=== PATIENT | male | born 1940 | race Caucasian/White ===

== ENCOUNTER 2019-07-25 11:25 | Outpatient (CLI) | payer MEDICARE, OTHER, SELFPAY ==
[2019-07-25 12:25] LABS: C Reactive Protein 0.3 mg/L (0.0-4.9); Creatine Phosphokinase 143 U/L (39-308)
[2019-07-25 12:59] LABS: Erythrocyte Sedimentation Rate 22 mm/hr (0-10)
[2019-07-26 15:12] LABS: Aldolase 3.5 U/L (< OR = 8.1); Anti-Nuclear Antibody Screen NEGATIVE (NEGATIVE); Cyclic Citrullinated Peptide <16 UNITS; SS A Ro Sjogrens Antibody <1.0 NEG AI (<1.0 NEG); SS-B/LA IGG <1.0 NEG AI (<1.0 NEG)
== END 2019-07-25 11:26 | disposition home or self-care (01) ==
PROVIDERS: Family Provider Family Medicine; PCP Family Medicine; Visit Provider Internal Medicine Critical Care Medicine
DX: J84.10 Pulmonary fibrosis, unspecified (principal)
CPT/HCPCS: 82085; 82550; 85651; 86038; 86140; 86235; 86431

== ENCOUNTER 2019-07-28 22:20 | Inpatient (IN) | payer MEDICARE, OTHER, SELFPAY ==
[2019-07-28 22:30] VITALS: BP 197/95; PULSE 64; RESP 16; TEMP 36.4; O2SAT 99; BMI 25.0
--- NOTE | 2019-07-28 22:38 | ED_ITS ---
Entered by Malgorzata Byrnes, acting as scribe for Lesli Turcios Beverley Jul 28, 2019 22:20 HPI - Chest Pain General: Chief Complaint: Chest Pain Stated Complaint: cp Time Seen by Provider: 07/28/19 22:36 Source: patient Mode of arrival: ambulatory Limitations: no limitations History of Present Illness: HPI narrative: 78 yo m came to the er for chest pain. Onset was tonight. Pt states that he was walking when he began to have dull chest pain. Pt states that the pain lasted a couple of hours. Pt states that that pain an hour before he came to the er was sharp. Pt is denying nausea and voiting at this time. MD complaint: chest pain Onset (ago): hour(s) Timing of current episode: episodic Prior episodes: Yes Onset: during rest and during exertion Pain location: epigastric Pain radiation: none Severity: mild Quality: sharp and dull Relieving factors: nothing Exacerbating factors: nothing Associated symptoms: Deny abdominal pain, diaphoresis, dyspnea, fever(s), nausea, palpitations, syncope or vomiting Risk Factors: Coronary artery disease risk factors: none Thoracic aortic dissection risk factors: none Review of Systems General: Reports: other (negative unless marked) Const: Denies: fever, chills, body aches, fatigue, malaise or diaphoresis Eyes: Denies: change in vision or blurry vision ENMT: Denies: throat pain, painful swallowing, hoarseness, ear pain, ear discharge, Change in hearing or nasal discharge Card: Reports: chest pain; Denies: palpitations, irregular heart rhythm, syncope, pre-syncope, shortness of breath on exertion or shortness of breath when lying down Resp: Denies: shortness of breath, productive cough, non-productive cough, wheezing, coughing up blood or chest congestion GI: Denies: abdominal pain, nausea, vomiting, vomiting blood, coffee grounds in vomit, diarrhea, constipation, cramping, blood in stool or black tarry stool : Denies: flank pain, difficulty urinating, painful urination, urinary frequency, urinary urgency, decreased urine ouput, urinary incontinence or blood in urine Musc: Denies: neck pain, back pain, extremity pain, extremity swelling, joint pain, joint swelling, joint warmth or joint stiffness Skin/Breast: Denies: rash, skin tenderness or yellow skin Neuro: Denies: headache, numbness in extremities, weakness in extremities, changes in sensation, lack of coordination, difficulty walking, dizziness, vertigo or confusion Endo: Denies: excessive thirst, tired all the time, cold intolerance, excessive sweating, flushing or hot flashes Renny/Lymph: Denies: easy bruising, easy bleeding, petechiae or enlarged lymph nodes All/Imm: Denies: hives, throat swelling, tongue swelling, facial swelling or acute wheezing PFSH ED PFSH: Statuses (acute, chronic, etc) shown below reflect problem list status as previously entered and may not be historically accurate Medical History Autonomic postural hypotension (Acute) Chronic prostatitis (Acute) Cough (Acute) Essential (primary) hypertension (Acute) H/O nephrolithotomy with removal of calculi (Acute) Hematuria (Acute) Male erectile dysfunction, unspecified (Acute) Mediastinal lymphadenopathy (Acute) Palpitations (Acute) Pure hypercholesterolemia, unspecified (Acute) Surgical History H/O oral surgery (Acute) History of ankle surgery (Acute) History of cholecystectomy (Acute) Family History Mother CAD (coronary artery disease) Lung disease CHF (congestive heart failure) Father CAD (coronary artery disease) Myocardial infarction Brother CAD (coronary artery disease) Hypertension Sister Hypertension Social History Smoking and tobacco status: former smoker Quit status (tobacco): has quit using tobacco Year quit tobacco: 1967 - 1PPD x 10 Years Alcohol intake: never Household members: spouse Marital status: Current occupational status: retired History of recent travel: No Current gender identity: Male Physical Exam Const: COMMON NORMALS: no apparent distress, oriented x3, no limitations, healthy appearing and well nourished EXAM LIMITATIONS: no altered mental status GENERAL APPEARANCE: cooperative, well kempt and well developed ORIENTATION/CONSCIOUSNESS: Yes awake HENMT: COMMON NORMALS: normocephalic, head/scalp atraumatic, hearing grossly normal bilaterally, external ears normal, EAC's normal, external nose normal and moist oral mucous membranes HEAD & SCALP: normal to inspection, normocephalic and atraumatic FACE & SINUS: normal facial exam and face symmetric NOSE: external nose normal and nares normal EXTERNAL EAR: Yes external ears normal EXTERNAL AUDITORY CANAL: EAC's normal MOUTH: oral and palatal mucosa normal and tongue normal Eye: COMMON NORMALS: PERRL, EOMs intact bilaterally, conjunctivae normal and no scleral icterus GENERAL EYE: normal appearance of both eyes and normal light reflex CONJUNCTIVA: Yes conjunctivae normal SCLERA: sclerae normal CORNEA: Yes corneas normal PUPIL: Yes PERRL DIRECT OPHTHALMOSCOPY: Yes normal light reflex Neck/C-Spine: COMMON NORMALS: full ROM, no lymphadenopathy, supple, no meningeal signs and no JVD GENERAL: Yes normal visual inspection and Yes trachea midline CERVICAL SPINE: Yes cervical ROM normal Chest: COMMONS NORMALS: inspection of chest normal and palpation of chest normal Resp: COMMON NORMALS: normal respiratory effort, no retractions, no use of accessory muscles and clear to auscultation bilaterally EFFORT & INSPECTION: Yes able to speak in complete sentences AUSCULTATION: clear to auscultation bilaterally Cardio: COMMON NORMALS: no JVD, regular rate, regular rhythm, S1 normal heart sound, S2 normal heart sound, no gallops, no clicks, no murmurs and no rub JUGULAR VENOUS DISTENTION: no JVD RATE: regular rate RHYTHM: regular rhythm HEART SOUNDS: S1 normal and S2 normal GI: COMMON NORMALS: soft to palpation, non-tender, no hepatosplenomegaly and no masses INSPECTION: Yes normal to inspection PALPATION: Yes soft and Yes no hepatosplenomegaly : COMMON NORMALS: Yes no CVA tenderness BLADDER/KIDNEY EXAM: Yes no CVA tenderness Back/Pelvis: COMMON NORMALS: no CVA tenderness, thoracic and lumbar spine normal to inspection, no thoracic nor lumbar tenderness and thoraco-lumbar ROM normal Extremity: COMMON NORMALS: normal to inspection, full ROM, normal capillary refill, no joint enlargement, no clubbing, cyanosis or edema and no calf tenderness Neuro: COMMON NORMALS: oriented x3, CN's II-XII intact bilaterally, moves all extremities, no focal motor deficits and no sensory deficits noted MENINGEAL SIGNS: Yes no meningeal signs Psych: COMMON NORMALS: mental status grossly normal, thought process normal, cooperative, affect normal, speech normal and activity/motor behavior normal APPEARANCE: Yes well kempt SPEECH: Yes normal speech THOUGHT PROCESS: normal thought process Skin: COMMON NORMALS: no rashes or lesions noted, skin turgor normal, no jaundice, no petechiae and no mottling GENERAL SKIN EXAM: no rashes or lesions noted and turgor normal Course Vital Signs: Vital signs: Vital Signs Temperature 97.7 F 07/29/19 00:30 Pulse Rate 59 L 07/29/19 00:30 Respiratory Rate 13 07/29/19 00:30 Blood Pressure 139/64 07/29/19 00:30 Pulse Oximetry 96 07/29/19 00:30 MDM - Chest Pain MDM Narrative: Medical decision making narrative: 0017 - Patient is chest pain-free after 1 sublingual nitroglycerin. 1 inch paste was applied. He was given aspirin. His elevated troponin qualifies him for a NSTEMI. He understands the significance of this and agrees to stay. Patient is currently chest pain-free. The case was reviewed with Dr. Helton, he agrees to consult f or further evaluation. Lab Data: Labs: Lab Results 07/28/19 07/28/19 07/28/19 Range/Units 22:51 22:51 22:51 WBC 8.0 (4.0-10.0) 10^3/ uL RBC 4.17 (4.1-5.3) 10^6/u L Hgb 12.6 (11.7-16.6) g/dL Hct 38.3 L (42.0-52.0) % MCV 91.8 (80-94) fL MCH 30.2 (28.0-34.0) pg MCHC 32.9 (30.0-36.0) g/dL RDW 12.3 (12.1-15.1) % Plt Count 227 (130-400) 10^3/c mm MPV 9.9 (7.4-10.4) fL Neut % (Auto) 62.1 % Lymph % (Auto) 22.0 % [place] % (Auto) 10.4 % Eos % (Auto) 4.1 % Baso % (Auto) 1.1 % Neut # (Auto) 5.0 (1.8-7.7) 10^3/u L Lymph # (Auto) 1.8 (0.8-4.8) 10^3/u L [place] # (Auto) 0.8 (0.2-0.9) 10^3/u L Eos # (Auto) 0.3 (0.0-0.8) 10^3/u L Baso # (Auto) 0.1 (0.0-0.1) 10^3/u L Nucleated RBC % (a uto) 0 % Nucleated RBCs # 0.0 /100WBC PT 13.80 H (10.5-13.3) SECO NDS INR 1.03 (0.8-1.2) Sodium 137 (136-145) mmol/L Potassium 3.9 (3.5-5.1) mmol/L Chloride 98 (98-107) mmol/L Carbon Dioxide 25 (22-29) mmol/L Anion Gap 17.9 (5-19) BUN 16 (8-23) mg/dL Creatinine 0.9 (0.7-1.2) mg/dL Glucose 124 H (74-106) mg/dL Calcium 10.2 (8.8-10.2) mg/Dl Total Bilirubin 0.3 (0.15-1.2) mg/dL AST 32 (0-40) U/L ALT 16 (0-41) U/L Alkaline Phosphata se 70 (40-130) IU/L Troponin T Baselin e (0-15) ng/mL NT-Pro-B Natriuret Pep 352 (0-450) pg/mL Total Protein 7.4 (6.6-8.7) g/dL Albumin 4.9 (3.5-5.2) g/dL Globulin 2.5 (1.3-4.6) g/dL 07/28/19 Range/Units 22:51 WBC (4.0-10.0) 10^3/ uL RBC (4.1-5.3) 10^6/u L Hgb (11.7-16.6) g/dL Hct (42.0-52.0) % MCV (80-94) fL MCH (28.0-34.0) pg MCHC (30.0-36.0) g/dL RDW (12.1-15.1) % Plt Count (130-400) 10^3/c mm MPV (7.4-10.4) fL Neut % (Auto) % Lymph % (Auto) % [place] % (Auto) % Eos % (Auto) % Baso % (Auto) % Neut # (Auto) (1.8-7.7) 10^3/u L Lymph # (Auto) (0.8-4.8) 10^3/u L [place] # (Auto) (0.2-0.9) 10^3/u L Eos # (Auto) (0.0-0.8) 10^3/u L Baso # (Auto) (0.0-0.1) 10^3/u L Nucleated RBC % (a uto) % Nucleated RBCs # /100WBC PT (10.5-13.3) SECO NDS INR (0.8-1.2) Sodium (136-145) mmol/L Potassium (3.5-5.1) mmol/L Chloride (98-107) mmol/L Carbon Dioxide (22-29) mmol/L Anion Gap (5-19) BUN (8-23) mg/dL Creatinine (0.7-1.2) mg/dL Glucose (74-106) mg/dL Calcium (8.8-10.2) mg/Dl Total Bilirubin (0.15-1.2) mg/dL AST (0-40) U/L ALT (0-41) U/L Alkaline Phosphata se (40-130) IU/L Troponin T Baselin e 110 H* (0-15) ng/mL NT-Pro-B Natriuret Pep (0-450) pg/mL Total Protein (6.6-8.7) g/dL Albumin (3.5-5.2) g/dL Globulin (1.3-4.6) g/dL Imaging Data^: CXR: Radiologist's impression: [address] [address] XRay Report Signed Patient: Yandel Hernandez #: [id number] : 2Acct#:[id number] Age/Sex: 78 / MADM Date: 07/28/19 Loc: ERRoom/Bed: Attending Dr: Ordering Provider/Ordering MD: Lesli Turcios DO Date of Service: 07/28/19 Procedure(s): XR chest 1V portable [id number] Accession Number(s): [id number] Report Number: [id number] PROCEDURE INFORMATION: Exam: XR Chest, 1 View Exam date and time: 07/28/2019 10:44 PM Age: 78 years old Clinical indication: Shortness of breath; Additional info: Chest pain TECHNIQUE: Imaging protocol: XR of the chest Views: 1 view. COMPARISON: CR Chest 1 [place] [id number] 12/19/2018 6:47 PM FINDINGS: Lungs: Emphysematous changes and mild peripheral fibrosis are not significantly changed from 12/19/2018. No focal infiltrate is identified. Pleural space: Unremarkable. No pleural effusion. No pneumothorax. Heart/Mediastinum: Heart is within normal limits of size. Bones/joints: Unremarkable. XR/XR chest 1V portable [id number] IMPRESSION: COPD. No acute infiltrates. Dictated By:Antoni Bingham Signed By:Jerson Binghamigned Date/Time:07/28/192337 DD/ 35 EKG Data^: EKG 1: Attestation: I personally reviewed and interpreted this EKG as follows: (Normal sinus rhythm at 61 beats a minute, nonspecific ST-T wave changes.) Discharge Plan Discharge Patient Disposition: Admitted As Inpatient Admit Provider: Tori Helton Clinical Impression: Non-ST elevation (NSTEMI) myocardial infarction Condition: Stable Interventions: ED Discharge Assessment Last Done: 07/29/19 00:28 Discharge Date/Time: 07/29/19 00:32 Coding Level of Care Code ED Celluloid Trimmer for Chg Fwd Exam Problem Focused The documentation recorded by the Fitz dhillon Stephanie Lyn, accurately reflects the service I personally performed and the decisions made by Tam fleming Eli N Jul 28, 2019 22:20
--- NOTE | 2019-07-28 22:43 | ECG_ITS ---
Measurements Intervals [place] Rate: 61 P: 53 WV: 165 QRS: -50 QRSD: 104 T: 61 QT: 432 QTc: 438 SINUS RHYTHM LEFT AXIS DEVIATION [QRS AXIS < -30] MODERATE ST DEPRESSION [0.05+ mV ST DEPRESSION] INTERPRETATION BASED ON A DEFAULT AGE OF 40 YEARS Compared to ECG 12/19/2018 22:24:36 ST (T wave) deviation now present Ventricular premature complex(es) no longer present T-wave abnormality no longer present Electronically Signed On 07-29-2019 9:33:00 [employer] by Jin Singer M.D. [email or web address]
--- NOTE | 2019-07-28 22:43 | XRR_ITS ---
PROCEDURE INFORMATION: Exam: XR Chest, 1 View Exam date and time: 07/28/2019 10:44 PM Age: 78 years old Clinical indication: Shortness of breath; Additional info: Chest pain TECHNIQUE: Imaging protocol: XR of the chest Views: 1 view. COMPARISON: CR Chest 1 [place] [id number] 12/19/2018 6:47 PM FINDINGS: Lungs: Emphysematous changes and mild peripheral fibrosis are not significantly changed from 12/19/2018. No focal infiltrate is identified. Pleural space: Unremarkable. No pleural effusion. No pneumothorax. Heart/Mediastinum: Heart is within normal limits of size. Bones/joints: Unremarkable. XR/XR chest 1V portable [id number] IMPRESSION: COPD. No acute infiltrates.
[2019-07-28 22:44] VITALS: BP 164/93; PULSE 12; RESP 18; O2SAT 100
[2019-07-28 23:01] LABS: Basophils # 0.1 10^3/uL (0.0-0.1); Basophils % 1.1 %; Eosinophils # 0.3 10^3/uL (0.0-0.8); Eosinophils % 4.1 %; Hematocrit 38.3 % (42.0-52.0); Hemoglobin 12.6 g/dL (11.7-16.6); Lymphocytes # 1.8 10^3/uL (0.8-4.8); Mean Corpuscular HGB Conc 32.9 g/dL (30.0-36.0); Mean Corpuscular Hemoglobin 30.2 pg (28.0-34.0); Mean Corpuscular Volume 91.8 fL (80-94); Mean Platelet Volume 9.9 fL (7.4-10.4); Monocytes # 0.8 10^3/uL (0.2-0.9); Monocytes % 10.4 %; Neutrophils % 62.1 %; Nucleated Red Blood Cells % 0 %; Platelet Count 227 10^3/cmm (130-400); Red Blood Count 4.17 10^6/uL (4.1-5.3); Red Cell Distribution Width 12.3 % (12.1-15.1)
[2019-07-28 23:14] VITALS: BP 164/91; PULSE 71; RESP 16; O2SAT 99
[2019-07-28 23:14] LABS: INR 1.03 (0.8-1.2)
[2019-07-28 23:20] LABS: Troponin(5th) Baseline 110 ng/mL (0-15)
[2019-07-28 23:28] LABS: Alanine Aminotransferase 16 U/L (0-41); Albumin Level 4.9 g/dL (3.5-5.2); Alkaline Phosphatase 70 IU/L (40-130); Anion Gap 17.9 (5-19); Aspartate Amino Transferase 32 U/L (0-40); Blood Urea Nitrogen 16 mg/dL (8-23); Calcium 10.2 mg/Dl (8.8-10.2); Carbon Dioxide 25 mmol/L (22-29); Chloride 98 mmol/L (98-107); Globulin 2.5 g/dL (1.3-4.6); Glucose 124 mg/dL (74-106); NT Pro B Type Natriuretic Pept 352 pg/mL (0-450); Potassium 3.9 mmol/L (3.5-5.1); Sodium 137 mmol/L (136-145); Total Bilirubin 0.3 mg/dL (0.15-1.2); Total Protein 7.4 g/dL (6.6-8.7)
[2019-07-28] MEDS: ondansetron 2 mg/ML SDV 2 mL 4 MG IVP (23:32)
[2019-07-28] MEDS: sodium chloride 0.9% 500 ML 999 ML IV (23:33)
[2019-07-28] MEDS: nitroglycerin 0.4 mg sublingual Tablet SUBLINGUAL (23:33)
[2019-07-28] MEDS: aspirin 81 mg Chew Tablet 324 MG PO (23:33)
[2019-07-29] VITALS (31 sets, daily range): BP systolic 122–146; BP diastolic 62–78; PULSE 47–61; RESP 0–20; TEMP 36–36.6; O2SAT 93–100
[2019-07-29] MEDS: nitroglycerin 1 gm/inch oint Pkt 1 INCH TOPICAL (00:56)
[2019-07-29] MEDS: sodium chloride 0.9% 1,000 ML 100 ML IV ×2 (00:57→23:45)
--- NOTE | 2019-07-29 00:59 | PC.NURSE ---
Introduced self to patient and initiated vital signs. Pt is A&O x 4 and agreeable. Pt states that the reason for the ER visit today is due to chest pain that he experienced this evening while in bed. Pt also speaks of chest pain episode which occurred approximately 1x day ago. Reassured patient of needs and will continue to monitor. Awaiting provider at bedside.
--- NOTE | 2019-07-29 02:10 | ECG_ITS ---
Measurements Intervals [place] Rate: 56 P: 49 [place]: 177 QRS: -50 QRSD: 90 T: 43 QT: 458 QTc: 444 SINUS BRADYCARDIA MARKED LEFT AXIS DEVIATION [QRS AXIS < -30] LOW QRS VOLTAGE IN PRECORDIAL LEADS [QRS DEFLECTION < 1.0 mV IN CHEST LEADS] Compared to ECG 12/19/2018 22:24:36 Sinus rhythm no longer present Ventricular premature complex(es) no longer present T-wave abnormality no longer present Electronically Signed On 07-29-2019 9:36:45 [employer] by Jin Singer M.D. [email or web address]
--- NOTE | 2019-07-29 04:27 | PM.HP ---
Providers/Chief Complaint Admitting Physician: Tori Helton MD Primary Care Provider: Mervin Blakely Chief Complaint: cp History of Present Illness Yandel Hernandez is a 78 year old male with PMHx of Interstitial pulmonary fibrosis, COPD, HTN, Hyperlipidemia; presents from home for evaluation of chest pain. He describes having had 2 episodes of this 1 yesterday and 1 today. It initially began while he was walking with his and had to stop to catch his breath. He tried laying down on the floor as this seems to be more comfortable for his back but could not seem to get rid of the pain. He had a bout of weakness and blurry vision, give him a drink of water which seemed to help him feel better. He does not recall having any increased shortness of breath, diaphoresis, lightheadedness. Prior to yesterday he had not had this symptoms. He was recently seen by Dr. Rodríguez for evaluation of mediastinal lymphadenopathy and states that he is scheduled to have a CT scan of the chest and a PET scan. He is not oxygen dependent at baseline. He was quite hypertensive on his arrival to the ER but blood pressure seems to be stable now. He is currently on room air. Chest pain seems to have subsided. Work-up is unremarkable save for noted delta change in his 2-hour gen 5 troponins. He received full dose aspirin as well as nitroglycerin. I will start him on full dose anticoagulation and statin. Will order echo for a.m. as no baseline currently available and will risk stratify with additional labs. Review of Systems Const: Reports: fatigue; Denies: fever, chills or change in appetite Eyes: Denies: change in vision ENMT: Denies: painful swallowing or dry mouth Card: Reports: chest pain and shortness of breath on exertion; Denies: palpitations, edema, swelling of feet/ankles, lightheadedness, syncope or pre-syncope Resp: Denies: shortness of breath, productive cough or non-productive cough GI: Denies: abdominal pain, nausea, vomiting, vomiting blood or blood in stool : Denies: painful urination or urinary frequency Musc: Denies: back pain Skin/Breast: Denies: rash Neuro: Denies: numbness in extremities or weakness in extremities Psych: Denies: anxiety Medications/Allergies Allergies Allergy/AdvReac Type Severity Reaction Status Date / Time clarithromycin Allergy Unknown Verified 07/25/19 10:15 PFSH Acute PFSH: Statuses (acute, chronic, etc) shown below reflect problem list status as previously entered and may not be historically accurate Medical History (Updated 07/29/19 @ 04:03 by Lesli Turcios) Autonomic postural hypotension (Acute) Chronic prostatitis (Acute) Cough (Acute) Essential (primary) hypertension (Acute) H/O nephrolithotomy with removal of calculi (Acute) Hematuria (Acute) Male erectile dysfunction, unspecified (Acute) Mediastinal lymphadenopathy (Acute) Palpitations (Acute) Pure hypercholesterolemia, unspecified (Acute) Surgical History H/O oral surgery (Acute) History of ankle surgery (Acute) History of cholecystectomy (Acute) Family History Mother CAD (coronary artery disease) Lung disease CHF (congestive heart failure) Father CAD (coronary artery disease) Myocardial infarction Brother CAD (coronary artery disease) Hypertension Sister Hypertension Social History Smoking and tobacco status: former smoker Quit status (tobacco): has quit using tobacco Year quit tobacco: 1968 - 1PPD x 10 Years Alcohol intake: never Household members: spouse Marital status: Current occupational status: retired History of recent travel: No Current gender identity: Male Vitals/I&O/Wt Last Vital Signs Temp 97.7 F 07/29/19 00:30 Pulse 59 L 07/29/19 00:30 Resp 13 07/29/19 00:30 BP 139/64 07/29/19 00:30 Pulse Ox 96 07/29/19 00:30 Weight last 48 hrs Weight 84.64 kg Weight 83.915 kg Physical Exam Const: COMMON NORMALS: no apparent distress and oriented x3 GENERAL APPEARANCE: cooperative and comfortable ORIENTATION/CONSCIOUSNESS: Yes awake HENMT: COMMON NORMALS: normocephalic, head/scalp atraumatic, hearing grossly normal bilaterally and moist oral mucous membranes HEAD & SCALP: normocephalic and atraumatic Eye: COMMON NORMALS: PERRL, EOMs intact bilaterally and conjunctivae normal CONJUNCTIVA: Yes conjunctivae normal PUPIL: Yes PERRL Neck/C-Spine: COMMON NORMALS: full ROM GENERAL: Yes normal visual inspection and Yes trachea midline Resp: COMMON NORMALS: normal respiratory effort, no retractions, no use of accessory muscles and clear to auscultation bilaterally EFFORT & INSPECTION: Yes able to speak in complete sentences, Yes symmetric chest movement and No tachypneic AUSCULTATION: clear to auscultation bilaterally Cardio: COMMON NORMALS: regular rate, regular rhythm, S1 normal heart sound, S2 normal heart sound and no murmurs RATE: regular rate RHYTHM: regular rhythm HEART SOUNDS: S1 normal and S2 normal GI: COMMON NORMALS: normal to inspection, nondistended, normoactive bowel sounds, soft to palpation and non-tender PALPATION: Yes soft Extremity: COMMON NORMALS: normal to inspection, full ROM and no clubbing, cyanosis or edema; negative for no pedal edema Neuro: COMMON NORMALS: oriented x3, moves all extremities, no focal motor deficits and no sensory deficits noted Psych: COMMON NORMALS: mental status grossly normal, thought process normal, cooperative, affect normal and speech normal SPEECH: Yes normal speech THOUGHT PROCESS: normal thought process Skin: COMMON NORMALS: no rashes or lesions noted, no jaundice, no petechiae and no mottling GENERAL SKIN EXAM: no rashes or lesions noted Data : 07/28/19 22:51 07/28/19 22:51 A&P Assessment and plan (1) Non-ST elevation (NSTEMI) myocardial infarction: -Noted significant delta change in our gen 5 troponins -Telemetry monitoring -JULIANNA -monitor vital signs -will start on therapeutic Lovenox, statin. Has already received full dose ASA -Echo ordered, no baseline available -will need to discuss further with cardiology in AM -risk stratify with TSH, A1c, lipid panel -would hold off on BB due to bradycardia Status: Acute Code(s): I21.4 - Non-ST elevation (NSTEMI) myocardial infarction (2) Interstitial pulmonary fibrosis: -has been following up with Dr. Rodríguez -supplemental oxygen as needed, monitoring of respiratory status Status: Acute Code(s): J84.10 - Pulmonary fibrosis, unspecified Additional A&P Information -HTN -COPD, no acute exacerbation -Hyperlipidemia -GI ppx with famotidine -no need for DVT ppx as on therapeutic anticoagulation -Dispo: home -Code status: FULL code Attestations Medical Necessity Statement*: Yandel Hernandez's hospital stay will be less than 2 midnights for management of NSTEMI requiring further workup, cardiology evaluation. Time Spent in Patient Care: Greater than 35 minutes (>than 50% of time spent in counselling and/or direct pt care on unit). Coding Level of Care Code Acute Assembling Fabricator for Melonyg Fwd Diagnoses Non-ST elevation (NSTEMI) myocardial infarction I21.4 Interstitial pulmonary fibrosis J84.10
--- NOTE | 2019-07-29 04:28 | USCV_ITS ---
BryYandel hernandez Age: 78 Gender: M : 1940 Exam Date: 07/29/2019 08:27 Ordering Phys: Tori Helton MD Technologist: Birdie Sue Exam Location: [facility] – [place] Indication: NSTEMI BP: 122 / 71 HR: 55 Rhythm: Sinus bradycardia Technical Quality: Technically difficult study MEASUREMENTS (Male / Female) Normal Values 2D ECHO LV Diastolic Diameter PLAX 3.6 cm 4.2 - 5.9 / 3.9 - 5.3 cm LV Systolic Diameter PLAX 2.5 cm LV Chamber Size 3.7 cm IVS Diastolic Thickness 1.3 cm 0.6 - 1.0 / 0.6 - 0.9 cm IVS Systolic Thickness 1.6 cm LVPW Diastolic Thickness 0.8 cm 0.6 - 1.0 / 0.6 - 0.9 cm LVPW Systolic Thickness 1.1 cm RV Chamber Size 2.8 cm LVOT Diameter 2.0 cm LV Ejection Fraction 2D Teich 57.1 % LA Diameter 3.4 cm LA Width 3.1 cm LA Height 4.9 cm RA Width 3.4 cm RA Height 4.9 cm Aorta at Sinotubular Diameter 2.7 cm M-MODE LV Diastolic Diameter MM 5.7 cm 4.2 - 5.9 / 3.9 - 5.3 cm LV Systolic Diameter MM 3.4 cm LV Ejection Fraction MM Teich 70.5 % IVS Diastolic Thickness MM 1.7 cm 0.6 - 1.0 / 0.6 - 0.9 cm IVS Systolic Thickness MM 2.1 cm LVPW Diastolic Thickness MM 1.2 cm 0.6 - 1.0 / 0.6 - 0.9 cm LVPW Systolic Thickness MM 1.4 cm Aortic Annulus Diameter 3.9 cm LA Ao Ratio MM 0.9 MV E Point Septal Separation 0.8 cm DOPPLER AV Peak Velocity 140.0 cm/s LVOT Peak Velocity 93.0 cm/s AV Area Cont Eq vti 1.9 cm squared AV Area Cont Eq pk 2.0 cm squared MV Area PHT 3.6 cm squared Mitral E to A Ratio 1.1 MV E' Velocity 8.0 cm/s Mitral E to MV E' Ratio 11.4 Mitral E to LV E' Lateral Ratio 12.4 Mitral E to LV E' Septal Ratio 10.7 TR Peak Velocity 243.0 cm/s TR Peak Gradient 23.6 mmHg TV Peak E Velocity 46.0 cm/s Right Atrial Pressure 3.0 mmHg Pulmonary Artery Systolic Pressu 26.6 mmHg PV Peak Velocity 64.0 cm/s RV Acceleration Time 0.1 s RV Ejection Time 0.3 s RV AcT/ET 0.3 FINDINGS Left Ventricle Normal left ventricular size, systolic function and wall thickness, with no regional wall motion abnormalities. Normal left ventricular wall thickness. Normal diastolic filling pattern. Left ventricular ejection fraction is estimated at 60%. Right Ventricle Normal right ventricular size and systolic function. Normal right ventricular systolic pressure. Right Atrium The right atrium is normal in size. Left Atrium The left atrium is normal in size. Mitral Valve Structurally normal mitral valve without significant stenosis or prolapse. There is no mitral regurgitation. Aortic Valve Structurally normal trileaflet aortic valve. Mild aortic valve calcification. Mild aortic valve stenosis, mean gradient 4.2 mmHg, THAD 1.9 cm squared. Tricuspid Valve Structurally normal tricuspid valve. Trace tricuspid valve regurgitation. Pulmonic Valve Pulmonic valve not well visualized. Pericardium Normal pericardium without effusion. Aorta Normal ascending aorta dimension. CONCLUSIONS Normal left ventricular size, systolic function and wall thickness, with no regional wall motion abnormalities. Normal left ventricular wall thickness. Normal diastolic filling pattern. Left ventricular ejection fraction is estimated at 60%. Structurally normal trileaflet aortic valve. Mild aortic valve calcification. Mild aortic valve stenosis, mean gradient 4.2 mmHg, THAD 1.9 cm squared. There are no prior echocardiogram studies to compare. Dr. Jin Singer MD (Electronically Signed) Final Date: 29 July 2019 10:26 S
--- NOTE | 2019-07-29 04:43 | ECG_ITS ---
Measurements Intervals [place] Rate: 58 P: 48 FL: 158 QRS: -49 QRSD: 96 T: 26 QT: 465 QTc: 458 SINUS BRADYCARDIA MARKED LEFT AXIS DEVIATION [QRS AXIS < -30] LOW QRS VOLTAGE IN PRECORDIAL LEADS [QRS DEFLECTION < 1.0 mV IN CHEST LEADS] PROLONGED QT INTERVAL Compared to ECG 12/19/2018 22:24:36 Prolonged QT interval now present Sinus rhythm no longer present Ventricular premature complex(es) no longer present T-wave abnormality no longer present Electronically Signed On 07-29-2019 9:34:53 BI DATA ARCHITECT by Jin Singer M.D. [id number]
[2019-07-29] MEDS: enoxaparin 100 mg/mL Syringe 80 MG SUBCUT (04:51)
[2019-07-29 05:08] LABS: Basophils # 0.1 10^3/uL (0.0-0.1); Basophils % 1.4 %; Eosinophils # 0.2 10^3/uL (0.0-0.8); Eosinophils % 4.1 %; Hematocrit 31.1 % (42.0-52.0); Hemoglobin 10.2 g/dL (11.7-16.6); Lymphocytes # 2.1 10^3/uL (0.8-4.8); Lymphocytes % 36.7 %; Mean Corpuscular HGB Conc 32.8 g/dL (30.0-36.0); Mean Corpuscular Volume 91.5 fL (80-94); Mean Platelet Volume 10.1 fL (7.4-10.4); Monocytes # 0.7 10^3/uL (0.2-0.9); Monocytes % 12.1 %; Neutrophils # 2.6 10^3/uL (1.8-7.7); Neutrophils % 45.5 %; Nucleated Red Blood Cells % 0 %; Platelet Count 218 10^3/cmm (130-400); Red Cell Distribution Width 12.2 % (12.1-15.1); White Blood Count 5.8 10^3/uL (4.0-10.0)
[2019-07-29 05:24] LABS: Partial Thromboplastin Time 32.6 SECONDS (23.9-36.7)
[2019-07-29 05:34] LABS: Estmated Average Glucose 114; Hemoglobin A1C 5.6 % (4.0-6.0)
[2019-07-29 05:38] LABS: Blood Urea Nitrogen 14 mg/dL (8-23); Calcium 9.1 mg/Dl (8.8-10.2); Carbon Dioxide 25 mmol/L (22-29); Chloride 104 mmol/L (98-107); Chol HDL Ratio 4.14 mg/dL (1.0-5.00); Cholesterol 207 mg/dL (0-200); Glucose 107 mg/dL (74-106); HDL Cholesterol 50 mg/dL (60-100); LDL Cholesterol Calculated 148 mg/dL (50-129); LDL HDL Ratio 2.96 RATIO (0.00-3.22); Sodium 138 mmol/L (136-145); Thyroid Stimulating Hormone 1.17 uIU/mL (0.27-4.20); Triglycerides 44 mg/dL (0-150)
[2019-07-29 05:39] LABS: Troponin 5 6HR 170.5 ng/L (0-15); Troponin 5 6HR Delta 60.5 ng/L (0-12)
[2019-07-29] MEDS: aspirin 325 mg Tablet PO (09:18)
--- NOTE | 2019-07-29 11:35 | P.CONIM_ITS ---
Providers/Reason For Consult Consulting Physican/Specialty*: Cardiovascular medicine Reason for Consult*: Chest pain, abnormal troponin Attending Physician: Lenin Oglesby Primary Care Provider: Mervin Blakely History of Present Illness History of Present Illness Yandel Hernandez is a 78 year old male who I have been seeing for several years in the clinic mainly for high blood pressure and orthostatic hypotension. He is a very difficult and circumspect historian at best. I see him in the office frequently. The last time I saw him was about 3 weeks ago. He was having all kinds of unusual symptoms which is typical for him. We spent months to close to a year getting his blood pressure issues straightened out. He was having odd sensations in his skin and other symptoms when I saw him last. He was not having shortness of breath or chest pain. He came in last evening because he was walking at the [employer] trying to keep up with his who he states walks fast. He began to develop episodes of chest discomfort with shortness of breath when he was walking trying to keep up with her. He also has chronic back pain which clouds much of his symptoms. He typically lays flat on the floor at home to take a nap because of his back pain. He tried to do this but still had shortness of breath and chest pain and then when he got up he became weak and had blurred vision. The weakness and blurred vision is something he has told me about for several years. He then came into the hospital. His troponin at baseline was 110. At 2 hours it went to 130 and at 6 hours 170. His EKG did not show any significant acute changes. He has some nonspecific ST and T wave changes. Meds/Allergies Home Medications and Allergies Home Medications Medication Instructions Recorded Confirmed Type aspirin 81 mg tablet,delayed 81 mg PO ONCE 07/23/19 07/28/19 History release calcium carbonate 1,177 mg 2,354 mg PO ONCE tab 07/23/19 07/28/19 History chewable tablet calcium citrate 250 mg 1 tab PO ONCE tab 07/23/19 07/28/19 History calcium-vitamin D3 200 unit tablet enalapril maleate 5 mg tablet 5 mg PO ONCE tab 07/23/19 07/28/19 History esomeprazole magnesium 20 mg 20 mg PO ONCE 07/23/19 07/28/19 History capsule,delayed release euc rdz-fuas-nui,rosem oils-pt each TOPICAL ONCE PRN gm 07/23/19 07/25/19 History flunisolide 25 mcg (0.025 %) nasal 2 spray INTRANASAL BID PRN 07/23/19 07/28/19 History spray lactobacillus combination no.9 4 4,000 mmu cells PO ONCE 07/23/19 07/28/19 History billion cell capsule triamcinolone acetonide 0.1 % 1 applic TOPICAL BID PRN 07/23/19 07/28/19 History topical cream vitamin B comp and C no.3 15 mg-10 1 cap PO ONCE 07/23/19 07/28/19 History mg-50 mg-5 mg-300 mg capsule cetirizine 10 mg capsule 20 mg PO BID cap 07/25/19 07/28/19 History diphenhydramine HCl 25 mg capsule 25 mg PO ONCE cap 07/25/19 07/28/19 History triamcinolone acetonide 0.1 % 1 applic TOPICAL BID 07/25/19 07/28/19 History topical cream Allergies Allergy/AdvReac Type Severity Reaction Status Date / Time clarithromycin Allergy Unknown Verified 07/25/19 10:15 Current Medications Current Medications Generic Name Dose Route Start Last Admin Trade Name Freq PRN Reason Stop Dose Admin Aspirin 325 mg 07/29/19 09:00 07/29/19 09:18 Aspirin PO 325 mg DAILY [place] Administration Enoxaparin Sodium 80 mg 07/29/19 04:30 07/29/19 04:51 Lovenox 1 mg/kg (80 mg) 80 mg SUBCUT Administration Q12H [place] Sodium Chloride 1,000 mls @ 100 mls/hr 07/29/19 00:30 07/29/19 00:57 Sodium Chloride 0.9% IV 100 mls/hr .Q10H [place] Administration PFSH Acute PFSH: Statuses (acute, chronic, etc) shown below reflect problem list status as previously entered and may not be historically accurate Medical History Anemia (Acute) Autonomic postural hypotension (Acute) Chronic prostatitis (Acute) Cough (Acute) Essential (primary) hypertension (Acute) H/O nephrolithotomy with removal of calculi (Acute) Hematuria (Acute) Male erectile dysfunction, unspecified (Acute) Mediastinal lymphadenopathy (Acute) Palpitations (Acute) Pure hypercholesterolemia, unspecified (Acute) Tobacco abuse, in remission (Acute) Quit many years ago 1967 Surgical History H/O oral surgery (Acute) History of ankle surgery (Acute) History of cholecystectomy (Acute) Family History Mother CAD (coronary artery disease) Lung disease CHF (congestive heart failure) Father CAD (coronary artery disease) Myocardial infarction Brother CAD (coronary artery disease) Hypertension Sister Hypertension Social History Smoking and tobacco status: former smoker Quit status (tobacco): has quit using tobacco Year quit tobacco: 1967 - 1PPD x 10 Years Alcohol intake: never Household members: spouse Marital status: Current occupational status: retired History of recent travel: No Current gender identity: Male Vitals/I&O/Wt Last Vital Signs Temp 98 F 07/29/19 04:00 Pulse 58 L 07/29/19 08:00 Resp 20 H 07/29/19 08:00 BP 123/62 07/29/19 08:00 Pulse Ox 93 07/29/19 08:00 07/28/19 07/29/19 07/29/19 22:59 06:59 14:59 Intake Total 100 / 100 Balance 100 / 100 Weight last 48 hrs Weight 190 lb 6.4 oz Weight 186 lb 9.6 oz Weight 185 lb Physical Exam Narrative: EXAM NARRATIVE: GENERAL: Comfortable at rest HEENT: Exam within normal limits. NECK: Supple without jugular vein distention. The carotid upstroke is normal without bruits. BACK: Exam normal. LUNGS: Clear. HEART: Regular rate and rhythm. ABDOMEN: Benign without organomegaly or tenderness. EXTREMITIES: No edema. NEUROLOGIC: Exam normal. SKIN: Unremarkable. Data Labs: Other Labs: First troponin I 10, 2-hour troponin I 30, 6-hour troponin I 70. A&P Assessment and plan (1) Non-ST elevation (NSTEMI) myocardial infarction: Status: Acute Code(s): I21.4 - Non-ST elevation (NSTEMI) myocardial infarction (2) Mediastinal lymphadenopathy: Status: Acute Code(s): R59.0 - Localized enlarged lymph nodes (3) Interstitial pulmonary fibrosis: Status: Acute Code(s): J84.10 - Pulmonary fibrosis, unspecified Additional A&P Information Yandel needs coronary angiography. It would be better to do this sooner rather than later. He is such a difficult historian that if angiography is not entertained he will continue to have symptoms. Coding Level of Care Code Acute Wellness Rn for [facility] Fwd Diagnoses Non-ST elevation (NSTEMI) myocardial infarction I21.4 Mediastinal lymphadenopathy R59.0 Interstitial pulmonary fibrosis J84.10
--- NOTE | 2019-07-29 11:55 | XACV_ITS ---
Exam Room: [facility] Ht: 183 cm Wt: 86 kg BSA: 2.10 m2 Gender: Male : 1940 Any Known Allergies: Other Exam Priority: Routine Procedure(s): Procedure Description: Diagnostic procedure Procedure Description: Left Heart Catheterization Procedure Description: Left ventriculography Procedure Description: Coronary Angiography Diagnostic Cath Status: Urgent Diagnostic Findings Patient with no prior history of heart disease with fairly typical angina with shortness of breath over the last 2 days while exerting. Troponin elevation consistent with non-ST segment elevation [place]. No significant EKG changes. Coronary angiography recommended and reveals right coronary artery dominance. All vessels are exceedingly tortuous and heavily calcified. Left main coronary artery is normal. The circumflex is tortuous and in the midportion there is a 85% stenosis. Other minor stenoses are noted. There is a ramus intermedius artery which appears normal. The LAD is tortuous and heavily calcified. In the midportion there is a 80% discrete stenosis. Both vessels provide some collateral flow to the distal right coronary artery. The right coronary artery is the dominant vessel and contains moderate diffuse disease proximally followed by a 95% discrete stenosis. At the acute margin the vessel is occluded. I made an attempt to place a wire across this occlusion and was unsuccessful at doing so. Conclusions Right dominant system with occluded mid to distal right coronary artery with severe disease of the mid right coronary artery. Greater than 80% stenoses of the mid circumflex and mid LAD. Extremely tortuous and heavily calcified arteries. Mild left ventricular dysfunction with akinesis of the inferior base. Ejection fraction 50%. Recommendations Initiate medical treatment. Plan stress testing tomorrow to assess ischemic burden. Initial attempt will be medical therapy. If significant ischemic burden and or failure of medical treatment with persistent angina then recommend coronary bypass surgery. Ejection Fraction: 50.0 % Pressures Phase:Rest AO : 101 mmHg / 54 mmHg ( 75 mmHg ) @ 7:26:00 AM 109 mmHg / 57 mmHg ( 80 mmHg ) @ 7::00 AM 105 mmHg / 42 mmHg ( 79 mmHg ) @ 7:26:00 AM 124 mmHg / 61 mmHg ( 88 mmHg ) @ 7:31:00 AM 124 mmHg / 61 mmHg ( 87 mmHg ) @ 7:31:00 AM 105 mmHg / 54 mmHg ( 75 mmHg ) @ 7:39:00 AM 114 mmHg / 46 mmHg ( 75 mmHg ) @ 7:40:00 AM 104 mmHg / 52 mmHg ( 74 mmHg ) @ 7:42:00 AM LV : 133 mmHg / -16 mmHg / @ 7:30:00 AM 134 mmHg / -17 mmHg / @ 7:31:00 AM 134 mmHg / -18 mmHg / @ 7:31:00 AM Valves Phase:DefaultPhase AV : 21.0 mmHg @ 1:55:23 PM AV Mean Gradient: 21.0 mmHg @ 1:55:23 PM Clinical Evaluation EBL: 5mL-10mL Procedural Details [facility] time/date stamp having technical issues. all documentation and procedure done on 07/29/2019 start time 12:01 end time 13:51. [id number]. Procedure Consent Obtained. Pre-Procedure Time Out. Identified patient by full name and date of as verbalized by the patient/guarantor. Does the consent match the physician's order: Yes. Accurate & Complete Informed Consent: Yes. Inpatient/Outpatient History & Physical on Chart: Yes. If H&P is completed, is and addenduem needed: N/A; If yes, is the addendum complete: N/A. Visualize and Verify Site with Patient/Guarantor: N/A. Relevant Radiology Images available: Yes. Pre-op teaching completed and patient verbalized understanding. The risks, benefits, and alternatives of sedation and/or procedure were discussed by physician. The patient agrees to continue. Procedure started. Correct patient, site and procedure confirmed by cath team. PERRLA. Strong, equal hand warp dresser bilaterally. Lungs clear x 5 lobes. IV Site on Arrival: 20 gauge in the left anticubital. IV Fluids: 0.9% NaCl at KVO. 0 mL infused prior to lift slab operator. Oxygen started at 2liters/min via nasal canula. right groin was prepped with chloroprep then draped in the usual sterile fashion. right radial was prepped with chloroprep then draped in the usual sterile fashion. Physician notified. Equipment: 6F - Radial. Cardiac Cath Pack. ACIST Manifold Kit Model BT 2000. Heparinized Saline (2 units/mL), 1000 mL bag. Baseline sample Acquired. HR: 46 BPM. Pre Procedural Pulses: bilateral dorsalis pedis was Doppled. Pre Procedural Pulses: bilateral posterior tibial was Doppled. Pre Procedural Pulses: bilateral radial was 2+. Physician arrived. Physician scrubbed in. Immediate Pre-Procedure Time Out. Correct Patient: Yes; Correct Procedure: Yes; Correct Site: Yes; Correct Patient Position: Yes; Correct Supplies: Yes; Dried Flammable Prep: Yes; Blood Products Available: No;. Lidocaine 1% infiltrated to the right radial. Arterial access obtained. A 6 [place] TIG catheter in over wire. Catheter redirected to the RCA. Catheter out. A 6 [place] Angled Pig catheter in over wire. EDP Sample taken: LV 133/-17,22; HR: 81 BPM; SpO2: 98%. LV gram performed in REZA @ 10 mL/second for a total of 30 mL. EDP Sample taken: LV 134/-18,20; HR: 85 BPM; SpO2: 98%. Pullback taken: LV 134/-19,20; AO 124/61(88); Mean: 21mmHg, Peak to Peak: 21mmHg, SEP: 23sec/min; HR: 79 BPM; SpO2: 98%. 6 [place] JR 4 guide catheter was inserted over the wire. Inventory is Zytoprotec Harlan XT .014 190cm Str. Guidewire. Unable to cross lesion, guidewire removed. Guide catheter out. A TR Band was successful obtaining hemostatsis at the Right Radial artery insertion site. TR band placed. Hemostasis obtained. Post Procedure: Pulses reassessed and unchanged. PERRLA. Strong, equal hand warp dresser bilaterally. No VTE prophylaxis required. Medication's Wasted: Lidocaine 1% = 18 mL. Medication's Wasted: Nitro = 49.8 mg. Medication's Wasted: Heparin = 1000 units. Total IV fluids: 75 mL. Fluoro: 6:00. Contrast type used: Omnipaque 300 mg/mL, 150 mL bottle. Complications: none. Estimated blood loss: 5mL-10mL. Procedure completed. Patient transferred by wheelchair to 1st floor. [facility] Clinical Fraility Score: 3: Managing Well. Resident Care Provider Indications: ACS > 24 hours. Chest Pain Symptom Assessment: Typical Angina Symptoms. Cardiovascular Instability: No. Vital chart was stopped. Post-op diagnosis: NSTEMI. Site: Right Radial artery Sheath Size: 6 Fr Hemostasis Method: TR Band Hemostasis Success: Successful Procedure Medications Start: 1:10 PM Stop: 1:10 PM Medication: Versed Amount: 1 mg Route: I.V. Start: 1:11 PM Stop: 1:11 PM Medication: Fentanyl Amount: 50 mcg Route: I.V. Start: 1:22 PM Stop: 1:22 PM Medication: Verapamil Amount: 5 mg Route: I.A. Start: 1:22 PM Stop: 1:22 PM Medication: Nitrogylcerin Amount: 200 mcg Route: I.A. Start: 1:24 PM Stop: 1:24 PM Medication: Heparin Amount: 5000 units Route: I.V. Start: 1:28 PM Stop: 1:28 PM Medication: Versed Amount: 1 mg Route: I.V. Start: 1:28 PM Stop: 1:28 PM Medication: Fentanyl Amount: 50 mcg Route: I.V. I, the attending physician, have reviewed and verified all procedure medications. Yes, all medications given per verbal order History/Risk Factors Hypertension: Yes Dyslipidemia: Yes Peripheral Arterial Disease (PAD): No Myocardial Infarction ([place]): No Obesity: No Renal Disease: No Tobacco Use: Former Prior Interventions PCI: No CABG: No Valve Surgery: No Report Signatures Finalized by:Dr. Jin Singer MD on 07/29/2019 2:31:34 PM
--- NOTE | 2019-07-29 12:39 | PC.CHAP ---
Pastoral Care Encounter/Spiritual Assessment Type of Contact [] Declined industrial safety engineer visit [] Patient/Family/Request visit [] Outpatient visit [] Follow-up visit [] Physician referral [] Code/Alert [] Routine visit [] Staff referral [] Actively dying [] Patient sleeping [] Family support [] [] Out of room [] Palliative care [] [] Receiving care in room [] Pre-surgical visit [] Trauma [] Long length of stay [] ICU visit [] Other: Relational/Emotional Strength [x] Patient feels connected with others/family/visitors/staff [] Distress [] Loneliness/isolation [] Abandonment Spirituality of Patient [] Person of [place] [] Attends Adventist of their [place] [] Believes in Prayer [] Reads Bible or Samaritan materials [] There are Spiritual issues to be addressed Tooling Inspector Interventions [x] Prayer [x] Active listening [x] Non-anxious presence [x] Spiritual/emotional support [] Crisis/trauma care [] Spiritual counseling [] Bereavement support [] Provided bereavement packet [] Provided Bible/devotional materials [] Provided toy/stuffed animal, coloring book to patient or family member [x] Completed spiritual assessment [] Provided Communion [] Anointing/Greene [] Salvation [] Other: Impact on Illness or Injury [] Angry [] Fearful [] Anxious [] Often cries [] Exhaustion [] Unable to work [] Unable to attend oriental orthodox [] Unable to walk/stand [] Unable to read [] Unable to drive [] Unable to eat/drink [] Unable to sleep [] Unable to be with family [] Other: Summary Chaplains prayed with patient. Time spent with patient 15 minutes
[2019-07-29] MEDS: pantoprazole DR 40 mg Tablet PO (15:48)
--- NOTE | 2019-07-29 20:30 | P.PN_ITS ---
Subjective Subjective: Interval history: This morning awaiting coronary angiography. At that time denies pain. Vitals/I&O/Wt Last Vital Signs Temp 97.9 F 07/29/19 19:14 Pulse 51 L 07/29/19 19:21 Resp 16 07/29/19 19:14 BP 127/75 07/29/19 19:14 Pulse Ox 97 07/29/19 19:21 07/29/19 07/29/19 07/29/19 06:59 14:59 22:59 Intake Total 100 / 100 240 / 240 Balance 100 / 100 240 / 240 Weight last 48 hrs Weight 86.364 kg Weight 84.64 kg Weight 83.915 kg Physical Exam Const: COMMON NORMALS: no apparent distress and oriented x3 HENMT: COMMON NORMALS: oropharynx normal Neck/C-Spine: COMMON NORMALS: no JVD Resp: COMMON NORMALS: normal respiratory effort and clear to auscultation bilaterally AUSCULTATION: clear to auscultation bilaterally Cardio: COMMON NORMALS: no JVD, regular rhythm, S1 normal heart sound, S2 normal heart sound and no murmurs RHYTHM: regular rhythm HEART SOUNDS: S1 normal and S2 normal GI: COMMON NORMALS: normal to inspection, nondistended, normoactive bowel sounds, soft to palpation and non-tender PALPATION: Yes soft Extremity: COMMON NORMALS: no joint enlargement and no pedal edema Neuro: COMMON NORMALS: oriented x3 and moves all extremities Skin: COMMON NORMALS: no rashes or lesions noted GENERAL SKIN EXAM: no rashes or lesions noted Data : 07/29/19 04:28 07/29/19 04:28 A&P Assessment and plan (1) Non-ST elevation (NSTEMI) myocardial infarction: Discussed with cardiology this morning. Status post coronary angiography today. Continue medications. Status: Acute Code(s): I21.4 - Non-ST elevation (NSTEMI) myocardial infarction (2) Interstitial pulmonary fibrosis: Continue follow up with Dr. Rodríguez -supplemental oxygen as needed, monitoring of respiratory status Status: Acute Code(s): J84.10 - Pulmonary fibrosis, unspecified Additional A&P Information -HTN -COPD, no acute exacerbation -Hyperlipidemia Attestations Medical Necessity Statement*: Continue admission management non-STEMI. Coding Level of Care Code Acute General Accounting Clerk for [facility] Diagnoses Non-ST elevation (NSTEMI) myocardial infarction I21.4 Interstitial pulmonary fibrosis J84.10
[2019-07-29] MEDS: atorvastatin 40 mg Tablet PO (20:57)
[2019-07-29] MEDS: famotidine 20 mg Tablet PO (20:57)
[2019-07-30] VITALS (7 sets, daily range): BP systolic 135–161; BP diastolic 68–81; PULSE 58–77; RESP 15–19; TEMP 36.6–36.7; O2SAT 96–98
[2019-07-30 05:11] LABS: Basophils # 0.1 10^3/uL (0.0-0.1); Basophils % 1.6 %; Eosinophils # 0.3 10^3/uL (0.0-0.8); Eosinophils % 4.5 %; Hematocrit 32.9 % (42.0-52.0); Hemoglobin 10.8 g/dL (11.7-16.6); Lymphocytes # 1.7 10^3/uL (0.8-4.8); Mean Corpuscular HGB Conc 32.8 g/dL (30.0-36.0); Mean Corpuscular Hemoglobin 30.1 pg (28.0-34.0); Mean Corpuscular Volume 91.6 fL (80-94); Mean Platelet Volume 10.5 fL (7.4-10.4); Monocytes # 0.9 10^3/uL (0.2-0.9); Neutrophils # 2.7 10^3/uL (1.8-7.7); Neutrophils % 47.7 %; Nucleated Red Blood Cells % 0 %; Platelet Count 219 10^3/cmm (130-400); Red Blood Count 3.59 10^6/uL (4.1-5.3); Red Cell Distribution Width 12.2 % (12.1-15.1); White Blood Count 5.6 10^3/uL (4.0-10.0)
[2019-07-30 05:43] LABS: Anion Gap 14.5 (5-19); Blood Urea Nitrogen 9 mg/dL (8-23); Calcium 9.1 mg/Dl (8.8-10.2); Carbon Dioxide 25 mmol/L (22-29); Chloride 105 mmol/L (98-107); Glucose 103 mg/dL (74-106); Potassium 3.5 mmol/L (3.5-5.1); Sodium 141 mmol/L (136-145)
--- NOTE | 2019-07-30 06:44 | SUR.PREOP ---
No pain reported during pre procedure assessment.
--- NOTE | 2019-07-30 06:45 | ECG_ITS ---
NAME OF STUDY: LEXISCAN SESTAMIBI STRESS TEST INDICATION: Chest Pain; Evaluation of Ischemic [place] LEXISCAN STRESS TEST ORDERING PHYSICIAN: Enmanuel CLINICAL INFORMATION: Coronary artery disease INTERPRETATION: 1. The patient was brought to the laboratory where Lexiscan was infused over 20 seconds. The resting blood pressure was 138/88. Maximum blood pressure was 161/84. The resting heart rate was 66 beats per minute. The maximum heart rate is 94 beats per minute. 2. The baseline electrocardiogram reveals sinus rhythm with left axis deviation possible old inferior wall DE 3. With Lexiscan infusion, there were no ST segment changes to suggest ischemia. 4. The patient experienced no symptoms or arrhythmias during the examination. CONCLUSION: 1. Unremarkable Lexiscan infusion. 2. Nuclear imaging to follow. Electronically Signed On 07-30-2019 17:17:43 WOOD BUCKER by Jin Singer M.D. [email or web address]
--- NOTE | 2019-07-30 06:46 | NMCV_ITS ---
Yandel Hernandez Age: 78 Gender: M : 1940 Exam Date: 07/30/2019 07:24 Ordering Phys: Jin Singer MD ([email or web address]) Technologist: EMEKA Cornejo Exam Location: [facility] Indications: Chest Pain STRESS TEST Please [facility] IMAGE PROTOCOL Rest/Stress 1 Lexiscan Day Radiopharmaceutical Dose (mCi) Administration Site Administered by Rest: Tc-99m 10.1 IV EMEKA Cornejo Sestamibi Stress:Tc-99m 31.6 IV EMEKA Cornejo Sestamibi Rest: 30-Jul-2019 60 Discovery 630 Stress: 30-Jul-2019 60 Discovery 630 Images obtained in supine and prone position. 0.4mg Lexiscan. SPECT RESULTS Technical Quality: Good Raw Data Analysis: Normal Image Corrections: No attenuation or motion correction applied Summed Stress Score: 3 Summed Rest Score: 4 Summed Difference Score: 0 PERFUSION FINDINGS Small to moderate area of moderately decreases uptake in the basal mid and apical inferior wall region, with no significant reversibility. FUNCTIONAL RESULTS (calculated via Gated SPECT) Stress Image LV EF (%): 74 Stress EDV (mL):95 TID: 1.21 Stress ESV (mL):25 FUNCTIONAL FINDINGS: Segmental wall motion analysis revealed no gross wall motion abnormalities. IMPRESSIONS 1. Myocardial perfusion may revealing a small to moderate area of persistent decreased tracer uptake in the inferior wall region, suggestive of myocardial scarring versus attenuation artifact. 2. Normal LV ejection fraction of 74%. 3. LV wall motion analysis revealing no gross wall motion normalities. 4. Normal LV volume. No significant coronary ischemia, based on the above findings Dr Ronel Phipps MD FAC (Electronically Signed) Final Date: 30 July 2019 15:01 S
--- NOTE | 2019-07-30 07:51 | PC.NURSE ---
to nuc med for stress test via wheelchair
[2019-07-30] MEDS: regadenoson 0.4 Mg/5 ml Syringe IVP (08:28)
--- NOTE | 2019-07-30 08:34 | SUR.PREOP ---
Patient reports no pain or discomfort prior to the start of the procedure.
--- NOTE | 2019-07-30 09:00 | PC.NURSE ---
Home med reconciliation Pt reported to me that he takes all his home meds in the evening around 6 pm. He mentioned he takes Enalapril 5 mg daily. He has his pill environmental planner. I educated the pt and to not take his home meds from a pill environmental planner for his safety and to let us know to avoid overdose or missed dose. Pt and verbalizes understanding. notified on this.
--- NOTE | 2019-07-30 09:19 | P.PN_ITS ---
Subjective Subjective: Interval history: Yandel had angiography yesterday. It revealed a totally occluded mid right coronary artery. It is a chronic total occlusion. I made an attempt to get a wire through there which was unsuccessful. He also has mid LAD and circumflex lesions. He has heavily calcified tortuous coronary arteries which would make intervention treacherous. My plan is to obtain a nuclear stress test today and assess his ischemic burden. If he has minimal ischemia the first effort will be to treat him medically to try to keep him free of shortness of breath and angina. He has had no problems overnight. No angina. Medications: Reviewed: Yes Vitals/I&O/Wt Last Vital Signs Temp 97.9 F 07/30/19 07:19 Pulse 77 07/30/19 08:34 Resp 17 07/30/19 07:19 BP 138/77 07/30/19 08:34 Pulse Ox 98 07/30/19 07:19 07/29/19 07/30/19 07/30/19 22:59 06:59 14:59 Intake Total 240 / 240 360 / 600 Balance 240 / 240 360 / 600 Weight last 48 hrs Weight 184 lb 4.8 oz Weight 190 lb 6.4 oz Weight 186 lb 9.6 oz Weight 185 lb Physical Exam Narrative: EXAM NARRATIVE: GENERAL: In general he looks and feels well HEENT: Exam within normal limits. NECK: Supple without jugular vein distention. The carotid upstroke is normal without bruits. BACK: Exam normal. LUNGS: Clear. HEART: Regular rate and rhythm. ABDOMEN: Benign without organomegaly or tenderness. EXTREMITIES: No edema. NEUROLOGIC: Exam normal. SKIN: Unremarkable. Data : 07/30/19 03:48 07/30/19 03:48 A&P Assessment and plan (1) CAD (coronary artery disease): Status: Acute Code(s): I25.10 - Atherosclerotic heart disease of [place] coronary artery without angina pectoris (2) Non-ST elevation (NSTEMI) myocardial infarction: Status: Acute Code(s): I21.4 - Non-ST elevation (NSTEMI) myocardial infarction (3) Interstitial pulmonary fibrosis: Status: Acute Code(s): J84.10 - Pulmonary fibrosis, unspecified (4) Mediastinal lymphadenopathy: Status: Acute Code(s): R59.0 - Localized enlarged lymph nodes (5) Aortic stenosis: Status: Acute Code(s): I35.0 - Nonrheumatic aortic (valve) stenosis (6) Essential (primary) hypertension: Status: Acute Code(s): I10 - Essential (primary) hypertension (7) Autonomic postural hypotension: Status: Acute Code(s): I95.1 - Orthostatic hypotension Additional A&P Information We will evaluate the results of the stress test later today. If he has a low ischemic burden we will attempt to treat him medically first. If he has a high ischemic burden or fails medical therapy he will need to be considered for coronary bypass surgery. He will be somewhat difficult to treat with medications because he does not tolerate them very well. He has orthostatic hypotension which complicates the use of other medications. Attestations Medical Necessity Statement*: Not applicable Coding Level of Care Code Acute Airset Caster for Chg Fwd History Detailed Exam Detailed Medical Decision Making Moderate Complexity Diagnoses CAD (coronary artery disease) I25.10 Non-ST elevation (NSTEMI) myocardial infarction I21.4 Interstitial pulmonary fibrosis J84.10 Mediastinal lymphadenopathy R59.0 Aortic stenosis I35.0 Essential (primary) hypertension I10 Autonomic postural hypotension I95.1
--- NOTE | 2019-07-30 16:43 | P.PN_ITS ---
Subjective Subjective: Interval history: Yandel had angiography yesterday. It revealed a totally occluded mid right coronary artery. It is a chronic total occlusion. I made an attempt to get a wire through there which was unsuccessful. He also has mid LAD and circumflex lesions. He has heavily calcified tortuous coronary arteries which would make intervention treacherous. My plan is to obtain a nuclear stress test today and assess his ischemic burden. If he has minimal ischemia the first effort will be to treat him medically to try to keep him free of shortness of breath and angina. He has had no problems overnight. No angina. Medications: Reviewed: Yes Vitals/I&O/Wt Last Vital Signs Temp 98.0 F 07/30/19 15:35 Pulse 75 07/30/19 16:21 Resp 16 07/30/19 15:35 BP 135/68 07/30/19 15:35 Pulse Ox 96 07/30/19 16:21 07/30/19 07/30/19 07/30/19 06:59 14:59 22:59 Intake Total 360 / 600 480 / 480 Balance 360 / 600 480 / 480 Weight last 48 hrs Weight 184 lb 4.8 oz Weight 190 lb 6.4 oz Weight 186 lb 9.6 oz Weight 185 lb Physical Exam Narrative: EXAM NARRATIVE: GENERAL: In general he looks and feels well HEENT: Exam within normal limits. NECK: Supple without jugular vein distention. The carotid upstroke is normal without bruits. BACK: Exam normal. LUNGS: Clear. HEART: Regular rate and rhythm. ABDOMEN: Benign without organomegaly or tenderness. EXTREMITIES: No edema. NEUROLOGIC: Exam normal. SKIN: Unremarkable. Data : 07/30/19 03:48 07/30/19 03:48 A&P Assessment and plan (1) CAD (coronary artery disease): Status: Resolved Code(s): I25.10 - Atherosclerotic heart disease of [place] coronary artery without angina pectoris (2) Non-ST elevation (NSTEMI) myocardial infarction: Status: Resolved Code(s): I21.4 - Non-ST elevation (NSTEMI) myocardial infarction (3) Interstitial pulmonary fibrosis: Status: Acute Code(s): J84.10 - Pulmonary fibrosis, unspecified (4) Mediastinal lymphadenopathy: Status: Acute Code(s): R59.0 - Localized enlarged lymph nodes (5) Aortic stenosis: Status: Resolved Code(s): I35.0 - Nonrheumatic aortic (valve) stenosis (6) Essential (primary) hypertension: Status: Acute Code(s): I10 - Essential (primary) hypertension (7) Autonomic postural hypotension: Status: Acute Code(s): I95.1 - Orthostatic hypotension Additional A&P Information We will evaluate the results of the stress test later today. If he has a low ischemic burden we will attempt to treat him medically first. If he has a high ischemic burden or fails medical therapy he will need to be considered for coronary bypass surgery. He will be somewhat difficult to treat with medications because he does not tolerate them very well. He has orthostatic hypotension which complicates the use of other medications. Attestations Medical Necessity Statement*: Not applicable Coding Level of Care Code Acute Field Assistant for [facility] Diagnoses CAD (coronary artery disease) I25.10 Non-ST elevation (NSTEMI) myocardial infarction I21.4 Interstitial pulmonary fibrosis J84.10 Mediastinal lymphadenopathy R59.0 Aortic stenosis I35.0 Essential (primary) hypertension I10 Autonomic postural hypotension I95.1
--- NOTE | 2019-07-30 16:48 | PM.MISC ---
Miscellaneous Note Note: I reviewed his stress test. It reveals virtually no ischemia. One can see the area where the right coronary artery is occluded but overall his left ventricular function is normal. There is no ischemia in the distribution of the LAD or the circumflex. Patient may be treated medically. I think we should add Imdur 15 mg daily. He is fairly sensitive to medications and has had unusual side effects in the past. Therefore I don't want to push too many medications. He should continue the low-dose aspirin. I am not going to use a beta carrie because he becomes hypotensive with any agent which is added to the evening Vasotec he takes. He asked me about the statin. He's been on those in the past and they've caused him severe side effects and so they were stopped. For now I would not send him home on a statin and I will try to introduce that as an outpatient. We should see him in about a week or 10 days in our clinic with the nurse practitioner for right radial artery check and chemistry panel. He should not lift anything more than 10 pounds for 2 days with the right upper extremity. Otherwise his activity can be normal.
--- NOTE | 2019-07-30 17:05 | PM.DCS ---
Discharge Providers Date of Admission: 07/29/19 14:22 Date of Discharge: 07/30/19 Attending Provider at Admission: Tori Helton MD Attending Provider at Discharge: Lenin Oglesby Primary Care Provider: Mervin Blakely Diagnoses at Discharge Discharge Diagnosis (1) CAD (coronary artery disease): Status: Acute (2) Non-ST elevation (NSTEMI) myocardial infarction: Status: Acute (3) Interstitial pulmonary fibrosis: Status: Acute (4) Mediastinal lymphadenopathy: Status: Acute (5) Aortic stenosis: Status: Acute (6) Essential (primary) hypertension: Status: Acute (7) Autonomic postural hypotension: Status: Acute Reason for Visit Reason for Visit: Reason For Visit: cp Hospital Course Hospital Course: 78-year-old gentleman with history of interstitial pulmonary fibrosis, COPD, HTN, HLD was admitted for assessment of chest pain episodes with noted significant delta change in troponin, with concern for non-STEMI was continued on aspirin, started on anticoagulation with Lovenox, statin. Beta-carrie was held off due to bradycardia, labile blood pressures. He was assessed by coronary angiography with finding of total occlusion of mid right coronary artery, chronic in nature, mid LAD and circumflex lesions. Heavily calcified tortuous coronary arteries making consideration of intervention difficult. He underwent additional assessment by stress testing which found minimal if any at all ischemia and on discussion with cardiology was continued on medical management. Beta-blockers were held off due to concern for labile blood pressures. Statins were deferred for now due to concern for weakness. He is started on 15 mg of Imdur daily and continued on aspirin. He remains symptom-free. He will follow-up with cardiology in office for further adjustments of his medical therapy. Physical Exam Const: COMMON NORMALS: no apparent distress and oriented x3 HENMT: COMMON NORMALS: oropharynx normal Neck/C-Spine: COMMON NORMALS: no JVD Resp: COMMON NORMALS: normal respiratory effort and clear to auscultation bilaterally AUSCULTATION: clear to auscultation bilaterally Cardio: COMMON NORMALS: no JVD, regular rhythm, S1 normal heart sound, S2 normal heart sound and no murmurs RHYTHM: regular rhythm HEART SOUNDS: S1 normal and S2 normal GI: COMMON NORMALS: normal to inspection, nondistended, normoactive bowel sounds, soft to palpation and non-tender PALPATION: Yes soft Extremity: COMMON NORMALS: no joint enlargement and no pedal edema Neuro: COMMON NORMALS: oriented x3 and moves all extremities Skin: COMMON NORMALS: no rashes or lesions noted GENERAL SKIN EXAM: no rashes or lesions noted Discharge Data Data Completed and Pending: Completed Studies During Hospitalization Category Date Time Status TECHNICAL SPEC request for service Routin e Exams 07/29/19 11:55 Completed XR chest 1V lissy ble [id number] Stat Exams 07/28/19 22:43 Completed NM harjeet perf SPECT r/s* [id number] Routin e Nuc Med 07/30/19 06:46 Completed CV echo complete* [id number] Routine Ultrasound 07/29/19 04:28 Completed Pending at discharge Category Date Time Status Cardiac Stress Te st MIBI [Sestamibi Stress Test Reque st Exams 07/30/19 06:45 Ordered ] Routine Labs from last 24 hours 07/30/19 07/30/19 03:48 03:48 WBC 5.6 RBC 3.59 L Hgb 10.8 L Hct 32.9 L MCV 91.6 MCH 30.1 MCHC 32.8 RDW 12.2 Plt Count 219 MPV 10.5 H Neut % (Auto) 47.7 Lymph % (Auto) 30.0 [place] % (Auto) 16.0 Eos % (Auto) 4.5 Baso % (Auto) 1.6 Neut # (Auto) 2.7 Lymph # (Auto) 1.7 [place] # (Auto) 0.9 Eos # (Auto) 0.3 Baso # (Auto) 0.1 Nucleated RBC % (a uto) 0 Nucleated RBCs # 0.0 Sodium 141 Potassium 3.5 Chloride 105 Carbon Dioxide 25 Anion Gap 14.5 BUN 9 Creatinine 0.7 Glucose 103 Calcium 9.1 Vitals: Last Vital Signs Temp 98.0 F 07/30/19 15:35 Pulse 75 07/30/19 16:21 Resp 16 07/30/19 15:35 BP 135/68 07/30/19 15:35 Pulse Ox 96 07/30/19 16:21 Discharge Plan Discharge Patient Disposition: Home, Self-Care Condition: Stable Prescriptions: New isosorbide dinitrate 10 mg tablet 15 mg PO DAILY 30 Days Qty: 45 RF: 0 Continued Zyrtec 10 mg capsule 20 mg PO BID RF: 0 diphenhydramine HCl [Benadryl] 25 mg capsule 25 mg PO PRN RF: 0 triamcinolone acetonide 0.1 % cream 1 applic TOPICAL BID RF: 0 enalapril maleate 5 mg tablet 5 mg PO DAILY RF: 0 esomeprazole magnesium [Nexium] 20 mg capsule,delayed release(DR/EC) 20 mg PO PRN RF: 0 Adult 50+ Probiotic 4 billion cell capsule 4,000 mmu cells PO ONCE RF: 0 Tums Ultra 1,177 mg tablet,chewable 2,354 mg PO DIRECTED RF: 0 B Complex Plus Vitamin C 22-16-72-5-300 mg capsule 1 cap PO ONCE RF: 0 calcium citrate-vitamin D3 250 mg calcium- 200 unit tablet 1 tab PO DIRECTED RF: 0 flunisolide 25 mcg (0.025 %) spray,non-aerosol 2 spray INTRANASAL BID PRN (Reason: other) RF: 0 aspirin 81 mg tablet,delayed release (DR/EC) 81 mg PO DAILY RF: 0 triamcinolone acetonide 0.1 % cream 1 applic TOPICAL BID PRN (Reason: other) RF: 0 Vicks Babyrub Ointment 1 TOPICAL PRN PRN (Reason: Itching) RF: 0 Discharge Orders: Discharge Order (Routine); Ordered 07/30/19 Ordered By: Lenin Oglesby Referrals: Karyna Del Angel FNP [Nurse Practitioner] - 1 week ([facility] will be calling to set up a followup with KHALIDA Hand. If you don't hear from them by Tomorrow afternoon, please call them at [phone]) Mervin Blakely [Primary Care Provider] - 4-7 days ([facility] will be calling to set up a hospital followup with Dr. Blakely. If you don't hear from them by Tomorrow afternoon, please call them at [phone]) Discharge Diet: Cardiac Discharge Activity: Limit activity as instructed Patient Instructions: Chest Pain Stoplight, Post Angiogram Home Care Instructions Activity Restrictions/Additional Instructions: If you experience return of non-resolving severe chest pain, shortness of breath, or other abnormal symptoms, please seek medical attention without delay. Discharge Date/Time: 07/30/19 18:32 Discharge Attestations Time Spent in Discharge Care*: greater than 30 min Quality Metrics Clinical Quality Measures During this hospital stay, did patient experience: AMI Clinical Trial Participant: No Contraindication to aspirin (AMI): Aspirin given Contraindication to statin: Drug intolerance and None Coding Level of Care Code Acute Hand Deicer Element Winder for Chg Fwd Exam Problem Focused Diagnoses CAD (coronary artery disease) I25.10 Non-ST elevation (NSTEMI) myocardial infarction I21.4 Interstitial pulmonary fibrosis J84.10 Mediastinal lymphadenopathy R59.0 Aortic stenosis I35.0 Essential (primary) hypertension I10 Autonomic postural hypotension I95.1
--- NOTE | 2019-07-30 19:13 | PC.NURSE ---
Discharge to home self-care Instructed pt to follow-up with her pcp and quality assurance coach. Educated pt on new med action, dosing, timing and side effects. Informed pt that quality assurance coach would like him to take his aspirin everyday. pt and teaches back and verbalizes understanding. discharge papers provided.
== END 2019-07-30 18:32 | disposition home or self-care (01) | DRG 282 ==
LOC: ER 22:36 → CSU 07-29 00:20
PROVIDERS: Internal Medicine Cardiovascular Disease; Admitting Provider Family Medicine; Emergency Provider Emergency Medicine; Family Provider Family Medicine; PCP Family Medicine; Visit Provider Internal Medicine
DX: I21.4 Non-ST elevation (NSTEMI) myocardial infarction (principal); J84.10 Pulmonary fibrosis, unspecified; I25.10 Atherosclerotic heart disease of native coronary artery without angina pectoris; I25.82 Chronic total occlusion of coronary artery; J44.9 Chronic obstructive pulmonary disease, unspecified; I10 Essential (primary) hypertension; E78.00 Pure hypercholesterolemia, unspecified; I95.1 Orthostatic hypotension; N41.1 Chronic prostatitis; N52.9 Male erectile dysfunction, unspecified; Z87.891 Personal history of nicotine dependence
CPT/HCPCS: 12345; 36415; 71045; 78452; 80048; 80053; 80061; 83036; 83880; 84443; 84484; 85025; 85610; 85730; 93005; 93017; 93306; 93452; 96372; 96374; 99282; A9500; C1769; C1887; C1894; G0378; J1644; J1650; J2001; J2250; J2405; J2785; J3010; J3490; J7030; J7040; Q9967

== ENCOUNTER → 2019-08-06 16:10 | Outpatient (BNVA) | payer OTHER, MEDICARE, SELFPAY | PROVIDERS: Family Provider Family Medicine; PCP Family Medicine; Visit Provider Nurse Practitioner Family | DX: I25.118 Atherosclerotic heart disease of native coronary artery with other forms of angina pectoris | CPT/HCPCS: 80048 ==

== ENCOUNTER 2019-08-08 09:56 | Outpatient (CLI) | payer MEDICARE, OTHER, SELFPAY | END 2019-08-08 09:57 | disposition home or self-care (01) | LOC: RT 10:01 | PROVIDERS: Family Provider Family Medicine; PCP Family Medicine; Visit Provider Internal Medicine Critical Care Medicine | DX: J43.9 Emphysema, unspecified (principal); R05 Cough | CPT/HCPCS: 94010; 94726; 94729 ==

== ENCOUNTER 2020-01-21 09:51 | Outpatient (CLI) | payer MEDICARE, OTHER, SELFPAY ==
--- NOTE | 2020-01-21 14:31 | PFTS_ITS ---
Date of Study:01/21/20 Date of Dictation: MECHANICS: Forced vital capacity (FVC) is normal. Forced expiratory volume in one second (FEV1) is normal. FEV1/FVC is normal. FLOW VOLUME LOOP: Normal. LUNG VOLUMES: Not measured DIFFUSING CAPACITY FOR CARBON MONOXIDE: Mildly reduced. INTERPRETATION: The pulmonary function tests are normal. Gas exchange (DLCO) is mildly reduced. MTDD
== END 2020-01-21 09:52 | disposition home or self-care (01) ==
LOC: RT 09:55
PROVIDERS: Family Provider Family Medicine; PCP Family Medicine; Visit Provider Internal Medicine Critical Care Medicine
DX: J84.10 Pulmonary fibrosis, unspecified (principal)
CPT/HCPCS: 94010; 94729

== ENCOUNTER 2020-05-26 10:53 | Outpatient (CLI) | payer MEDICARE, OTHER, SELFPAY ==
--- NOTE | 2020-05-26 11:00 | CT_ITS ---
WS: [id number] Exam: CT chest wo con [id number] Date/Time of Exam: 05/26/2020 10:58 AM Reason For Exam: Pulmonary fibrosis DLP: 1325.[address] scans at [facility] use at least one of these dose optimization techniques: automat ed exposure control; mA and/or kV adjustment per patient size (includes targeted exams where dose is matched to clinical indication); or iterative reconstruction. High-resolution CT scan of the chest is performed. Sagittal and coronal reformatted images are provid ed. The lungs are hyperinflated. No consolidating infiltrates identified. No sign of pulmonary mass or no dule. There are changes of interstitial fibrosis noted. Honeycombing noted in the bilateral lower lob es. The thoracic aorta is normal in caliber. Coronary artery calcifications. No pleural or pericardia l effusion. No destructive bone lesions or chest wall defects. CT/CT chest wo con [id number] IMPRESSION: 1. Findings suggest advanced pulmonary emphysema with interstitial fibrosis. Ho neycombing noted in the bilateral lower lobes. 2. No pulmonary mass or lymphadenopathy in the chest.
== END 2020-05-26 10:54 | disposition home or self-care (01) ==
LOC: RADWPI 10:57
PROVIDERS: PCP Family Medicine; Visit Provider Internal Medicine Critical Care Medicine
DX: J84.10 Pulmonary fibrosis, unspecified (principal)
CPT/HCPCS: 71250

== ENCOUNTER → 2020-06-18 10:50 | Outpatient (BNVA) | payer MEDICARE, OTHER, SELFPAY | PROVIDERS: PCP Family Medicine; Visit Provider Internal Medicine Critical Care Medicine | DX: I95.1 Orthostatic hypotension (principal) | CPT/HCPCS: 87635 ==

== ENCOUNTER 2020-06-23 12:42 | Outpatient (CLI) | payer MEDICARE, OTHER, SELFPAY ==
--- NOTE | 2020-06-23 13:30 | PFTS_ITS ---
Date of Study:06/23/20 Date of Dictation: MECHANICS: Forced vital capacity (FVC) is normal. Forced expiratory volume in one second (FEV1) is normal. FEV1/FVC is normal. FLOW VOLUME LOOP: Normal. LUNG VOLUMES: Total lung capacity (TLC) is mildly reduced. Residual volume (RV) is reduced. DIFFUSING CAPACITY FOR CARBON MONOXIDE: Mild reduced. INTERPRETATION: Spirometry is normal. Lung volumes are consistent with mild reduction in total lung capacity and a greater reduction in residual volume. This could be suggestive of early interstitial lung disease. Gas exchange (DLCO) is mildly reduced. MTDD
== END 2020-06-23 12:43 | disposition home or self-care (01) ==
LOC: RT 12:44
PROVIDERS: PCP Family Medicine; Visit Provider Internal Medicine Critical Care Medicine
DX: J84.10 Pulmonary fibrosis, unspecified (principal)
CPT/HCPCS: 94010; 94726; 94729

== ENCOUNTER → 2020-12-26 14:51 | Outpatient (BNVA) | payer MEDICARE, OTHER, SELFPAY | PROVIDERS: PCP Family Medicine; Visit Provider Internal Medicine Critical Care Medicine | DX: Z01.812 Encounter for preprocedural laboratory examination (principal); Z20.822 Contact with and (suspected) exposure to COVID-19 | CPT/HCPCS: 87635; 99211 ==

== ENCOUNTER 2020-12-31 11:06 | Outpatient (CLI) | payer MEDICARE, OTHER, SELFPAY ==
--- NOTE | 2020-12-31 12:29 | PFTS_ITS ---
Date of Study:12/31/20 Date of Dictation: MECHANICS: Forced vital capacity (FVC) is normal. Forced expiratory volume in one second (FEV1) is normal. FEV1/FVC is normal. FLOW VOLUME LOOP: Hesitation in the flow volume loop. LUNG VOLUMES: Not measured DIFFUSING CAPACITY FOR CARBON MONOXIDE: Mildly reduced. INTERPRETATION: The spirometry is normal. Gas exchange (DLCO) is mildly reduced. MTDD
== END 2020-12-31 11:07 | disposition home or self-care (01) ==
LOC: RT 11:09
PROVIDERS: PCP Family Medicine; Visit Provider Internal Medicine Critical Care Medicine
DX: J84.10 Pulmonary fibrosis, unspecified (principal)
CPT/HCPCS: 94010; 94729

== ENCOUNTER → 2021-09-21 13:58 | Outpatient (BNVA) | payer MEDICARE, OTHER, SELFPAY | PROVIDERS: PCP Family Medicine; Visit Provider Internal Medicine Critical Care Medicine | DX: J84.10 Pulmonary fibrosis, unspecified (principal); R59.0 Localized enlarged lymph nodes; J30.9 Allergic rhinitis, unspecified; I25.118 Atherosclerotic heart disease of native coronary artery with other forms of angina pectoris; Z87.891 Personal history of nicotine dependence; I10 Essential (primary) hypertension | CPT/HCPCS: 99213 ==

== ENCOUNTER → 2021-10-05 12:52 | Outpatient (BNVA) | payer MEDICARE, OTHER, SELFPAY | PROVIDERS: PCP Family Medicine; Visit Provider Internal Medicine Cardiovascular Disease | DX: I25.10 Atherosclerotic heart disease of native coronary artery without angina pectoris (principal); I10 Essential (primary) hypertension; I35.0 Nonrheumatic aortic (valve) stenosis | CPT/HCPCS: 99213 ==

== ENCOUNTER → 2022-03-25 10:52 | Outpatient (BNVA) | payer MEDICARE, OTHER, SELFPAY | PROVIDERS: PCP Family Medicine; Visit Provider Internal Medicine Critical Care Medicine | DX: J84.10 Pulmonary fibrosis, unspecified (principal); R59.0 Localized enlarged lymph nodes; J30.9 Allergic rhinitis, unspecified; I25.118 Atherosclerotic heart disease of native coronary artery with other forms of angina pectoris; Z87.891 Personal history of nicotine dependence | CPT/HCPCS: 99213 ==

== ENCOUNTER 2022-03-31 12:06 | Outpatient (CLI) | payer MEDICARE, OTHER, SELFPAY ==
--- NOTE | 2022-03-31 14:30 | CT_ITS ---
WS: [id number] HIGH-RESOLUTION CT CHEST TECHNIQUE: Noncontrast high-resolution CT of the chest with coronal and sagittal reformatted images. Inspiratory and expiratory imaging. Prone imaging. CLINICAL INFORMATION: Idiopathic pulmonary fibrosis COMPARISON: May 26, 2020 DLP: 2604.[address] scans at [facility] use at least one of these dose optimization techniques: automated e xposure control; mA and/or kV adjustment per patient size (includes targeted exams where dose is matc hed to clinical indication); or iterative reconstruction. FINDINGS: Stable findings of interstitial lung disease with interstitial thickening with reticular op acities and subpleural honeycombing in the lung bases similar to previous. Findings compatible with interstitial pulmonary fibrosis. Traction bronchiectasis in the RIGHT middle lobe and RIGHT lower lobe. Mild air trapping on expiratory imaging. Aortic calcification. Normal caliber thoracic aorta. Coronary calcification. Calcified mediastinal ly mph nodes. Calcified RIGHT hilar lymph nodes. No axillary lymphadenopathy. Cholecystectomy clips. Den se calcification involving the celiac and SMA origins worse at the SMA in the upper abdomen. Normal G E junction. Adrenal glands are normal. CT/CT chest wo con [id number] IMPRESSION: 1. Interstitial lung disease with subpleural honeycombing in the lung bases si milar to previous. Similar-appearing subpleural reticular opacities. Findings c ompatible with interstitial pulmonary fibrosis. 2. Bronchiectasis in the RIGHT middle lobe and RIGHT lower lobe. Mild bronchie ctasis LEFT lower lobe. 3. No dense consolidation. No pleural fluid. 4. Mild air trapping on the expiratory imaging.
== END 2022-03-31 12:07 | disposition home or self-care (01) ==
LOC: RT 12:07
PROVIDERS: PCP Family Medicine; Visit Provider Internal Medicine Critical Care Medicine
DX: J84.10 Pulmonary fibrosis, unspecified (principal)
CPT/HCPCS: 71250; 94010; 94726; 94729

== ENCOUNTER → 2022-04-27 14:58 | Outpatient (BNVA) | payer MEDICARE, OTHER, SELFPAY | PROVIDERS: PCP Family Medicine; Visit Provider Otolaryngology | DX: H93.232 Hyperacusis, left ear (principal); H93.13 Tinnitus, bilateral; Z87.891 Personal history of nicotine dependence | CPT/HCPCS: 99203 ==

== ENCOUNTER → 2022-05-07 11:08 | Outpatient (BNVA) | payer MEDICARE, OTHER, SELFPAY | PROVIDERS: PCP Family Medicine; Visit Provider Internal Medicine Cardiovascular Disease | DX: I95.1 Orthostatic hypotension (principal); E78.00 Pure hypercholesterolemia, unspecified; I35.0 Nonrheumatic aortic (valve) stenosis; I25.118 Atherosclerotic heart disease of native coronary artery with other forms of angina pectoris; I10 Essential (primary) hypertension; Z87.891 Personal history of nicotine dependence | CPT/HCPCS: 99213 ==

== ENCOUNTER 2022-05-26 10:53 | Outpatient (CLI) | payer MEDICARE, OTHER, SELFPAY ==
--- NOTE | 2022-05-26 11:00 | MR_ITS ---
WS: [id number] MRI BRAIN WITH HIGH-RESOLUTION IMAGING THROUGH THE INTERNAL AUDITORY CANALS WITHOUT AND WITH CONTRAST HISTORY: Hyperacusis COMPARISON: None available. TECHNIQUE: Multiplanar, multisequence imaging is performed through the brain. Additional 3 mm imaging performed in multiple planes through the internal auditory canal. Postcontrast imaging with 17 ml's of MultiHance. No acute intracranial hemorrhage, midline shift, edema or mass effect. No evidence for an acute infarct. Hemosiderin deposition measures 7 mm in the posterior LEFT frontal parietal region. No enhancement. May be from an old focal hemorrhage. Supratentorial bilateral moderate confluent and patchy small vessel ischemic changes throughout the w radha matter. No infarct. Ventricles and extra-axial spaces are normal. No inferior displacement of cerebellar tonsils. Clivus and pituitary gland are normal. Internal and external auditory canals: Unremarkable. Cranial nerves VII and VIII complexes: Unremarkable. No enhancement or mass. Cerebellopontine angles: Normal. Paranasal sinuses: Normal. Mastoid air cells: Normal. Calvarium and scalp: Normal. Visualized pokagon of [place] and dural venous sinuses demonstrate no abnormality. MR/MR iac's wo/w con* [id number] IMPRESSION: 1. No mass or abnormal signal along the internal auditory canals or cerebellop ontine angles. 2. No significant mastoid air cell disease. 3. Moderate bilateral confluent and patchy white matter disease. Probably rela can to end vessel disease of atherosclerosis. No acute infarct.
[2022-05-26] MEDS: gadobenate dimeglumine 20 mL vial IV (11:37)
== END 2022-05-26 10:54 | disposition home or self-care (01) ==
LOC: RAD 11:01
PROVIDERS: PCP Family Medicine; Visit Provider Otolaryngology
DX: H91.93 Unspecified hearing loss, bilateral (principal); H93.232 Hyperacusis, left ear
CPT/HCPCS: 70553; A9577

== ENCOUNTER → 2022-06-15 15:24 | Outpatient (BNVA) | payer MEDICARE, OTHER, SELFPAY | PROVIDERS: PCP Family Medicine; Visit Provider Otolaryngology | DX: H93.232 Hyperacusis, left ear (principal); H93.13 Tinnitus, bilateral | CPT/HCPCS: 99212; 99213 ==

== ENCOUNTER → 2022-11-10 10:50 | Outpatient (BNVA) | payer MEDICARE, OTHER, SELFPAY | PROVIDERS: PCP Family Medicine; Visit Provider Internal Medicine Cardiovascular Disease | DX: I95.1 Orthostatic hypotension (principal); E78.00 Pure hypercholesterolemia, unspecified; I35.0 Nonrheumatic aortic (valve) stenosis; I25.118 Atherosclerotic heart disease of native coronary artery with other forms of angina pectoris; I10 Essential (primary) hypertension; J84.10 Pulmonary fibrosis, unspecified; Z87.891 Personal history of nicotine dependence; Z79.82 Long term (current) use of aspirin | CPT/HCPCS: 99213 ==

== ENCOUNTER → 2022-12-22 10:27 | Outpatient (BNVA) | payer MEDICARE, OTHER, SELFPAY | PROVIDERS: PCP Family Medicine; Visit Provider Internal Medicine Pulmonary Disease | DX: J30.9 Allergic rhinitis, unspecified (principal); J84.10 Pulmonary fibrosis, unspecified; R59.0 Localized enlarged lymph nodes; I25.118 Atherosclerotic heart disease of native coronary artery with other forms of angina pectoris; J47.9 Bronchiectasis, uncomplicated; J98.11 Atelectasis | CPT/HCPCS: 99214 ==

== ENCOUNTER → 2023-05-26 12:56 | Outpatient (BNVA) | payer MEDICARE, OTHER, SELFPAY | PROVIDERS: PCP Family Medicine; Visit Provider Internal Medicine Cardiovascular Disease | DX: I25.10 Atherosclerotic heart disease of native coronary artery without angina pectoris (principal); I10 Essential (primary) hypertension; I95.1 Orthostatic hypotension; E78.00 Pure hypercholesterolemia, unspecified; I35.0 Nonrheumatic aortic (valve) stenosis; Z87.891 Personal history of nicotine dependence | CPT/HCPCS: 99213 ==

== ENCOUNTER → 2023-09-22 10:36 | Outpatient (BNVA) | payer MEDICARE, OTHER, SELFPAY | PROVIDERS: PCP Family Medicine; Visit Provider Internal Medicine Pulmonary Disease | DX: J84.10 Pulmonary fibrosis, unspecified (principal); R59.0 Localized enlarged lymph nodes; J30.9 Allergic rhinitis, unspecified; I25.118 Atherosclerotic heart disease of native coronary artery with other forms of angina pectoris; J47.9 Bronchiectasis, uncomplicated; T46.7X5A Adverse effect of peripheral vasodilators, initial encounter; X58.XXXA Exposure to other specified factors, initial encounter; L30.9 Dermatitis, unspecified; Z87.891 Personal history of nicotine dependence | CPT/HCPCS: 99214 ==

== ENCOUNTER 2023-10-05 07:05 | Outpatient (CLI) | payer MEDICARE, OTHER, SELFPAY | END 2023-10-05 07:06 | disposition home or self-care (01) | LOC: RT 07:07 | PROVIDERS: PCP Family Medicine; Visit Provider Internal Medicine Pulmonary Disease | DX: R06.02 Shortness of breath (principal) | CPT/HCPCS: 94010; 94618; 94726; 94729 ==

== ENCOUNTER 2023-11-21 10:20 | Outpatient (CLI) | payer MEDICARE, OTHER, SELFPAY ==
--- NOTE | 2023-11-21 10:30 | CT_ITS ---
WS: [id number] CT CHEST CT-HIGH RESOLUTION, NONCONTRAST. HISTORY: 03/31/2022 Technique: High-resolution chest CT is performed in inspiration, expiration, supine and prone positio sammy. All CT scans at [facility] use at least one of these dose optimization techniques: automated exposure control; mA and/or kV adjustment per patient size (includes targeted exams where dose is mat ched to clinical indication); or iterative reconstruction. DLP: 908.00 mGy.cm COMPARISON: 03/31/2022 Findings: Lung volumes are mildly decreased. Peripheral areas of interstitial scarring with fibrosis throughout both lungs, greater distribution of reticular fibrotic changes at the lung bases. Equivoca l progression of honeycombing at the lung bases. There is no obvious significant progression. There i s bibasilar, subpleural honeycombing, greater on the RIGHT. Mild bilateral traction bronchiectasis in all lobes but greatest at the lung bases. There is no enlarging mass or nodule. With expiration ther e is mild volume loss. No obvious air trapping is identified. No mosaic attenuation. Moderate atherosclerosis thoracic aorta. Pulmonary arteries equal size of the aorta. Heart is mildly enlarged with coronary calcifications. Lymph nodes are difficult to identify without IV contrast. Sma ll hiatal hernia. Stomach is dilated with fluid and food products. CT/CT chest wo con [id number] Impression: 1. 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 The extent of honeycombing and bronchiectasis has not significantly changed. 2. Mild pulmonary volume loss. 3. Atherosclerosis thoracic aorta. 4. No adenopathy identified. 5. No air trapping.
== END 2023-11-21 10:21 | disposition home or self-care (01) ==
LOC: RAD 10:20
PROVIDERS: PCP Family Medicine; Visit Provider Internal Medicine Pulmonary Disease
DX: J84.9 Interstitial pulmonary disease, unspecified (principal); I70.0 Atherosclerosis of aorta
CPT/HCPCS: 71250

== ENCOUNTER → 2023-12-07 13:23 | Outpatient (BNVA) | payer MEDICARE, OTHER, SELFPAY | PROVIDERS: PCP Family Medicine; Visit Provider Internal Medicine Pulmonary Disease | DX: J84.10 Pulmonary fibrosis, unspecified (principal); R59.0 Localized enlarged lymph nodes; J30.9 Allergic rhinitis, unspecified; I25.118 Atherosclerotic heart disease of native coronary artery with other forms of angina pectoris; J47.9 Bronchiectasis, uncomplicated; L30.9 Dermatitis, unspecified; Z87.891 Personal history of nicotine dependence; I10 Essential (primary) hypertension | CPT/HCPCS: 99214 ==

== ENCOUNTER → 2023-12-27 13:13 | Outpatient (BNVA) | payer MEDICARE, OTHER, SELFPAY | PROVIDERS: PCP Family Medicine; Visit Provider Internal Medicine Cardiovascular Disease | DX: E78.00 Pure hypercholesterolemia, unspecified (principal); I95.1 Orthostatic hypotension; I10 Essential (primary) hypertension; I35.0 Nonrheumatic aortic (valve) stenosis; I25.118 Atherosclerotic heart disease of native coronary artery with other forms of angina pectoris; J84.10 Pulmonary fibrosis, unspecified | CPT/HCPCS: 99213 ==

== ENCOUNTER 2024-02-17 20:48 | Emergency (ER) | payer MEDICARE, OTHER, SELFPAY ==
[2024-02-17 20:55] VITALS: BP 173/93; PULSE 67; RESP 18; TEMP 36.5; O2SAT 100; BMI 23.4
[2024-02-17 22:02] LABS: Basophils # 0.1 10^3/uL (0.0-0.1); Basophils % 1.6 %; Eosinophils # 0.4 10^3/uL (0.0-0.8); Eosinophils % 6.2 %; Hematocrit 34.8 % (37-53); Lymphocytes # 2.6 10^3/uL (0.8-4.8); Lymphocytes % 41.8 %; Mean Corpuscular HGB Conc 32.8 g/dL (30-55); Mean Corpuscular Hemoglobin 31.6 pg (27-33); Mean Corpuscular Volume 96.4 fl (82-101); Mean Platelet Volume 9.9 fL (7.4-10.4); Monocytes # 0.9 10^3/uL (0.2-0.9); Monocytes % 14.3 %; Neutrophils # 2.24 10^3/uL (1.8-7.7); Neutrophils % 35.6 %; Nucleated Red Blood Cells % 0 %; Platelet Count 227 10^3/cmm (157-399); Red Blood Count 3.61 10^6/uL (3.85-5.65); Red Cell Distribution Width 13.2 % (12.1-15.1); White Blood Count 6.29 10^3/uL (3.29-11.43)
[2024-02-17 22:09] LABS: Alanine Aminotransferase 10 U/L (0-41); Alkaline Phosphatase 72 U/L (40-130); Anion Gap 15.5 (5-19); Aspartate Amino Transferase 19 U/L (0-40); Blood Urea Nitrogen 19 mg/dL (8-23); Calcium 8.9 mg/dL (8.5-10.5); Carbon Dioxide 26 mmol/L (22-29); Chloride 103 mmol/L (98-107); Creatinine Clr Calc Pharmacy 55.4087; Glucose 104 mg/dL (65-115); Osmolality Calculated 293 mOsm/kg (285-295); Potassium 4.5 mmol/L (3.5-5.1); Sodium 140 mmol/L (136-145); Total Bilirubin 0.2 mg/dL (0.15-1.2)
--- NOTE | 2024-02-17 22:47 | CTR_ITS ---
PROCEDURE INFORMATION: Exam: CT Head Without Contrast Exam date and time: 02/17/2024 10:55 PM Age: 83 years old Clinical indication: Altered mental status/memory loss; Confusion or disorientation; Patient HX: Patient C/O intermittent confusion TECHNIQUE: Imaging protocol: Computed tomography of the head without contrast. Radiation optimization: All CT scans at this facility use at least one of these dose optimization techniques: automated exposure control; mA and/or kV adjustment per patient size (includes targeted exams where dose is matched to clinical indication); or iterative reconstruction. COMPARISON: MR hassan's wo/w con* [id number] 05/26/2022 11:32 AM RADIATION DOSE METRICS: Total DLP (mGy-cm): 1046.48 FINDINGS: Brain: Bilateral basal ganglia calcifications. Extensive periventricular and subcortical white matter hypodensities, likely representing chronic small vessel ischemic changes. Cerebral ventricles: Moderate generalized cortical volume loss with prominence of the ventricles and cortical sulci. Paranasal sinuses: Mild patchy opacification of the ethmoid air cells. Mastoid air cells: Visualized mastoid air cells are well aerated. Bones: Unremarkable. No acute fracture. Soft tissues: Unremarkable. Vasculature: Vascular calcifications along the carotid siphons. Other findings: Bilateral replacements. CT/CT head wo con* [id number] IMPRESSION: 1. No acute intracranial findings. 2. Chronic/age-related changes as above.
--- NOTE | 2024-02-17 22:47 | ED_ITS ---
HPI - Altered Mental Status 2 General: Chief Complaint: Neuro Symptoms/Deficit Stated Complaint: Possible Stroke, Possible UTI Time Seen by Provider: 02/17/24 22:32 Source: patient and family () Mode of arrival: ambulatory Limitations: no limitations History of Present Illness: Patient is a very pleasant 83-year-old male here along with his for concerns of some confusion and altered mental status. states patient has had a slow cognitive decline over the past year but states over the past few weeks it has seemed to progress quickly . She notes occasions where patient seems to stare at paper pages. She reports he seems to scramble some of his words together and seems more forgetful. She also states that he has trouble giving others directions to places he has been multiple times and is very familiar with. Patient states he is not having pain anywhere-no headache. Does not feel weak. has not noticed any slurred speech, facial drooping, or weakness to extremities. No nausea/vomiting. MD complaint: altered mental status and confusion Onset (ago): day(s) Timing confirmed by: spouse Severity: mild Associated symptoms: Reports no associated symptoms Related Data Home Medications Medication Instructions Recorded Confirmed calcium citrate 250 mg 1 tab PO DIRECTED 07/23/19 12/27/23 calcium-vitamin D3 5 mcg (200 unit) tablet eucalyptus oil-aloe 1 topical PRN PRN Itching 07/23/19 12/27/23 extr-lavender,janice oil-petrolatum top ointment (Vicks Babyrub topical ointment) triamcinolone acetonide 0.1 % 1 applic topical BID PRN other 07/23/19 12/27/23 topical cream vitamin B comp and C no.3 15 mg-10 1 cap PO ONCE 07/23/19 12/27/23 mg-50 mg-5 mg-300 mg capsule (B Complex Plus Vitamin C) cranberry 400 mg capsule 400 mg PO DAILY 07/22/21 12/27/23 dupilumab 300 mg/2 mL subcutaneous 300 mg SUBCUT Q14D 07/22/21 12/27/23 syringe (Dupixent) glucosamine-chondroitin 250 mg-200 2 tab PO TID 07/22/21 12/27/23 mg tablet (Osteo Bi-Flex) testosterone 1 pump topical DAILY 07/22/21 12/27/23 cetirizine 10 mg capsule (Zyrtec) 20 mg PO DAILY 10/05/21 12/27/23 diphenhydramine HCl 25 mg capsule 50 mg PO .hs 10/05/21 12/27/23 (Allergy (diphenhydramine)) fluticasone propionate 50 2 spray intranasal DAILY PRN 05/07/22 12/27/23 mcg/actuation nasal allergy symptoms spray,suspension aspirin 81 mg tablet,delayed 81 mg PO DAILY PRN 11/10/22 12/27/23 release calcium carbonate (Tums Ultra) 2,354 mg PO DIRECTED PRN 11/10/22 12/27/23 esomeprazole magnesium 20 mg 20 mg PO DIRECTED 11/10/22 12/27/23 capsule,delayed release (Nexium) lactobacillus combination no.9 4 4,000 mmu cells PO ONCE PRN 11/10/22 12/27/23 billion cell capsule (Adult 50 Plus Probiotic) omeprazole 20 mg capsule,delayed 20 mg PO DIRECTED 11/10/22 12/27/23 release isosorbide mononitrate 10 mg tablet 10 mg PO DAILY 05/26/23 12/27/23 Previous Rx's Medication Instructions Recorded enalapril maleate 5 mg tablet 5 mg PO DAILY #90 tabs 01/26/24 Allergies Allergy/AdvReac Type Severity Reaction Status Date / Time latex Allergy Severe ALGY-Bliste Verified 12/27/23 13:27 r PPD black rubber mix Allergy rash Verified 12/27/23 13:27 clarithromycin AdvReac Mild ADR-Headach Verified 12/27/23 13:27 e Review of Systems 2 Const: Denies: fever(s), chills, body aches, fatigue or malaise Eyes: Denies: change in vision, blurry vision, photophobia, floaters or seeing flashes Card: Denies: chest pain Resp: Denies: dyspnea GI: Denies: abdominal pain, nausea or vomiting Musc: Denies: neck pain, back pain, extremity pain or joint pain Skin/Breast: Denies: rash Neuro: Reports: confusion and difficulty communicating thoughts; Denies: headache(s), numbness in extremities, weakness in extremities, sensory changes, lack of coordination, difficulty walking, frequent falls, dizziness, vertigo, behavioral changes, Slurred speech present, seizure-like activity or involuntary movements PFSH ED 2 PFSH: Medical History Kidney calculi Myocardial infarction Orthostatic hypotension CAD (coronary artery disease) Pulmonary fibrosis Aortic stenosis Tobacco abuse, in remission Quit many years ago 1967 Anemia H/O nephrolithotomy with removal of calculi Essential (primary) hypertension Male erectile dysfunction, unspecified Autonomic postural hypotension Palpitations Chronic prostatitis Pure hypercholesterolemia, unspecified Hematuria Mediastinal lymphadenopathy Cough Surgical History History of cataract extraction History of cholecystectomy History of ankle surgery H/O oral surgery Family History Mother CAD (coronary artery disease) Lung disease Congestive heart failure (CHF) Father CAD (coronary artery disease) Myocardial infarction Brother CAD (coronary artery disease) Hypertension Sister Hypertension Grandfather Cancer Family/Other Stroke Denies family history of Diabetes Clotting disorder Dementia Chronic kidney disease (CKD) Suicide Anesthesia complication Bleeding disorder Social History Smoking and tobacco/nicotine status: former use of tobacco/nicotine Quit status (tobacco/nicotine): has quit using Year quit tobacco: 1968 - 1PPD x 10 Years Alcohol intake: never Substance/Drug Use: never Lives independently: Yes Household members: spouse Marital status: Current occupational status: retired Do you think of yourself as: Straight/Heterosexual Current gender identity: Male Physical Exam 2 Const: COMMON NORMALS: no acute distress, average body habitus, no limitations, healthy appearing, alert and well nourished GENERAL APPEARANCE: cooperative ORIENTATION/CONSCIOUSNESS: Yes awake, Yes oriented to person and Yes oriented to place OTHER: patient knows he is in the emergency department; states his is responsible for bringing him here HENMT: COMMON NORMALS: normocephalic and atraumatic HEAD & SCALP: normal to inspection, normocephalic and atraumatic FACE & SINUS: normal facial exam Eye: COMMON NORMALS: Equal, round and reactive pupils present and EOMs intact bilaterally GENERAL EYE: appearance normal, both eyes and all related structures and normal light reflex PUPIL: Yes Equal, round and reactive pupils present DIRECT OPHTHALMOSCOPY: Yes normal light reflex Neck/C-Spine: COMMON NORMALS: full ROM, no lymphadenopathy, no meningeal signs and no JVD GENERAL: Yes normal visual inspection Resp: COMMON NORMALS: normal respiratory effort and clear to auscultation bilaterally AUSCULTATION: clear to auscultation bilaterally Cardio: COMMON NORMALS: no JVD, regular rate and regular rhythm RATE: r egular rate RHYTHM: regular rhythm Extremity: GENERAL: Yes normal exam except as noted Neuro: ARMANDO COMA SCALE: document GCS findings Armando coma scale eye opening: Spontaneous [place] coma scale verbal response: Orientated [place] coma scale motor response: Obey commands Armando coma scale total score: 15 COMMON NORMALS: CN's II-XII intact bilaterally, moves all extremities, no focal motor deficits and no sensory deficits noted SENSORIUM/ORIENTATION: Yes alert, Yes oriented to person and Yes oriented to place MENINGEAL SIGNS: Yes no meningeal signs CRANIAL NERVES: Yes CN normal except as noted C OORDINATION/BALANCE: [id number] test normal SPEECH: speech normal G AIT: Yes Normal gait present MOTOR EXAM: 5/5 motor strength present throughout COORDINATION: [id number] test normal OTHER: seems somewhat forgetful Skin: COMMON NORMALS: no rashes or lesions noted GENERAL SKIN EXAM: no rashes or lesions noted Course 2 Vital Signs: Vital signs: Vital Signs Temperature 97.7 F 02/17/24 20:55 Pulse Rate 58 L 02/17/24 23:30 Respiratory Rate 18 02/17/24 20:55 Blood Pressure 148/74 02/18/24 00:51 Pulse Oximetry 100 02/17/24 23:30 Oxygen Delivery Me thod Room Air 02/17/24 23:30 MDM - Altered Mental Status Medical Decision Making Patient here for worsening confusion. This most likely is dementia related. His blood work is completely unremarkable. His UA is clear. Head CT is unremarkable. Patient's blood pressure was elevated here. He states this is normally controlled at home. History and physical exam is not suspicious for any type of reversible encephalopathy syndromes. He has no complaints of a headache, nausea, vomiting or other symptoms consistent with hypertensive encephalopathy. Blood pressure was responsive to medications given here. states they will follow-up with primary care early this week. Return ED precautions given. Differential Diagnosis Likely altered mental status, delirium and dementia Lab Data 02/17/24 21:47 02/17/24 21:[address] 02/17/24 22:47 IMPRESSION: 1. No acute intracranial findings. 2. Chronic/age-related changes as above. Laboratory Results WBC 6.29 10^3/uL (3.29-11.43) 02/17/24 21:47 RBC 3.61 10^6/uL (3.85-5.65) L 02/17/24 21:47 Hgb 11.40 g/dL (11.27-16.99) 02/17/24 21:47 Hct 34.8 % (37-53) L 02/17/24 21:47 MCV 96.4 fl (82-101) 02/17/24 21:47 MCH 31.6 pg (27-33) 02/17/24 21:47 MCHC 32.8 g/dL (30-55) 02/17/24 21:47 RDW 13.2 % (12.1-15.1) 02/17/24 21:47 Plt Count 227 10^3/cmm (157-399) 02/17/24 21:47 MPV 9.9 fL (7.4-10.4) 02/17/24 21:47 Neut % (Auto) 35.6 % 02/17/24 21:47 Lymph % (Auto) 41.8 % 02/17/24 21:47 [place] % (Auto) 14.3 % 02/17/24 21:47 Eos % (Auto) 6.2 % 02/17/24 21:47 Baso % (Auto) 1.6 % 02/17/24 21:47 Neut # (Auto) 2.24 10^3/uL (1.8-7.7) 02/17/24 21:47 Lymph # (Auto) 2.6 10^3/uL (0.8-4.8) 02/17/24 21:47 [place] # (Auto) 0.9 10^3/uL (0.2-0.9) 02/17/24 21:47 Eos # (Auto) 0.4 10^3/uL (0.0-0.8) 02/17/24 21:47 Baso # (Auto) 0.1 10^3/uL (0.0-0.1) 02/17/24 21:47 Nucleated RBC % (auto) 0 % 02/17/24 21:47 Nucleated RBCs # 0.0 /100WBC 02/17/24 21:47 Sodium 140 mmol/L (136-145) 02/17/24 21:47 Potassium 4.5 mmol/L (3.5-5.1) 02/17/24 21:47 Chloride 103 mmol/L (98-107) 02/17/24 21:47 Carbon Dioxide 26 mmol/L (22-29) 02/17/24 21:47 Anion Gap 15.5 (5-19) 02/17/24 21:47 BUN 19 mg/dL (8-23) 02/17/24 21:47 Creatinine 1.1 mg/dL (0.7-1.2) 02/17/24 21:47 GFR Calculation Not Reportable 02/17/24 21:47 Glucose 104 mg/dL (65-115) 02/17/24 21:47 Calculated Osmolality 293 mOsm/kg (285-295) 02/17/24 21:47 Calcium 8.9 mg/dL (8.5-10.5) 02/17/24 21:47 Total Bilirubin 0.2 mg/dL (0.15-1.2) 02/17/24 21:47 AST 19 U/L (0-40) 02/17/24 21:47 ALT 10 U/L (0-41) 02/17/24 21:47 Alkaline Phosphatase 72 U/L (40-130) 02/17/24 21:47 Total Protein 7.0 g/dL (6.6-8.7) 02/17/24 21:47 Albumin 4.0 g/dL (3.5-5.2) 02/17/24 21:47 Globulin 3.0 g/dL (1.3-4.6) 02/17/24 21:47 Urine Color Yellow (Yellow) 02/17/24 23:13 Urine Appearance Clear (CLEAR) 02/17/24 23:13 Urine pH 6.0 (5-7) 02/17/24 23:13 Ur Specific Anna 1.005 (1.005-1.030) 02/17/24 23:13 Urine Protein Negative (Negative) 02/17/24 23:13 Urine Glucose (UA) Negative (Normal) 02/17/24 23:13 Urine Ketones Negative (Negative) 02/17/24 23:13 Urine Blood Negative (Negative) 02/17/24 23:13 Urine Nitrate Negative (Negative) 02/17/24 23:13 Urine Bilirubin Negative (Negative) 02/17/24 23:13 Urine Urobilinogen 0.2 mg/dL (Negative) 02/17/24 23:13 Ur Leukocyte Esterase Negative (Negative) 02/17/24 23:13 Urine RBC 0-2 /hpf (0-2) 02/17/24 23:13 Urine WBC 0-5 /hpf (0-5) 02/17/24 23:13 Ur Squamous Epith Cells 0-5 /hpf (0-5) 02/17/24 23:13 Amorphous Sediment Not Reportable 02/17/24 23:13 Urine Bacteria None seen /hpf (NONE) 02/17/24 23:13 Hyaline Casts 0-4 /lpf H 02/17/24 23:13 Urine Opiates Screen Negative ng/mL (Negative) 02/17/24 23:13 Ur Barbiturates Screen Negative ng/mL (Negative) 02/17/24 23:13 Ur Phencyclidine Scrn Negative ng/mL (Negative) 02/17/24 23:13 Ur Amphetamines Screen Negative ng/mL (Negative) 02/17/24 23:13 U Benzodiazepines Scrn Negative ng/mL (Negative) 02/17/24 23:13 Urine Cocaine Screen Negative ng/mL (Negative) 02/17/24 23:13 U Marijuana (THC) Screen Negative ng/mL (Negative) 02/17/24 23:13 All radiology interpretation(s) finalized by discharge Discharge Plan Discharge Patient Disposition: Home Clinical Impression: Essential (primary) hypertension, Intermittent confusion Condition: Stable Prescriptions: No Action Zyrtec 10 mg capsule 20 mg PO DAILY fluticasone propionate 50 mcg/actuation spray,suspension 2 spray intranasal DAILY PRN (Reason: allergy symptoms) Rx Instructions: administer into each nostril B Complex Plus Vitamin C 53-18-90-5-300 mg capsule 1 cap PO ONCE calcium citrate-vitamin D3 250 mg calcium- 200 unit tablet 1 tab PO DIRECTED triamcinolone acetonide 0.1 % cream 1 applic TOPICAL BID PRN (Reason: other) Vicks Babyrub Ointment 1 TOPICAL PRN PRN (Reason: Itching) aspirin 81 mg tablet,delayed release (DR/EC) 81 mg PO DAILY PRN Rx Instructions: 3 days a week Tums Ultra 470 mg calcium (1,177 mg) tablet,chewable 2,354 mg PO DIRECTED PRN esomeprazole magnesium [Nexium] 20 mg capsule,delayed release(DR/EC) 20 mg PO DIRECTED Rx Instructions: Every other week Adult 50 Plus Probiotic 4 billion cell capsule 4,000 mmu cells PO ONCE PRN Dupixent Syringe 300 mg/2 mL syringe 300 mg SUBCUT Q14D diphenhydramine HCl [Allergy (diphenhydramine)] 25 mg capsule 50 mg PO .hs omeprazole 20 mg capsule,delayed release(DR/EC) 20 mg PO DIRECTED Rx Instructions: Alternate with Nexium testosterone 20.25 mg/1.25 gram (1.62 %) gel in metered-dose pump 1 pump topical DAILY cranberry 400 mg capsule 400 mg PO DAILY Rx Instructions: administer with a meal glucosamine-chondroitin [Osteo Bi-Flex] 250-200 mg tablet 2 tab PO TID Rx Instructions: give after food/meal isosorbide mononitrate 10 mg tablet 10 mg PO DAILY enalapril maleate 5 mg tablet 5 mg PO DAILY Qty: 90 3RF Rx Instructions: 1 tab daily Discharge Orders: Discharge ED (Routine); Ordered 02/18/24 Ordered By: Donna Tee Referrals: Igor Sims MD [Primary Care Provider] - Activity Restrictions/Additional Instructions: As we discussed I think it is reasonable for him to follow-up with his primary care provider early next week for reevaluation of his symptoms. He can also do additional testing and evaluation if there is concern for dementia. Patient's blood pressure was elevated here in the emergency department however you have indicated that this is normally controlled at home with his blood pressure medication. I recommend you keep a log over the next 2 weeks and review with primary care. Patient needs to return to the emergency department for onset of a severe headache, visual changes, repetitive episodes of nausea or vomiting, trouble with ambulation, slurred speech, facial drooping, weakness or numbness to his arms or legs, or any other concerns you may have Coding Level of Care Code ED [employer] for Maggie Arredondo
[2024-02-17 22:57] VITALS: BP 204/110
[2024-02-17 23:23] LABS: Charge for UA Resulting for Rev
[2024-02-17] MEDS: enalaprilat 2.5 mg/2 mL SDV 1.25 MG IVP (23:24)
[2024-02-17 23:26] LABS: Bilirubin Urine Negative (Negative); Blood Urine Negative (Negative); Glucose Urine UA Negative (Normal); Ketones Urine Negative (Negative); Leukocyte Esterase Urine Negative (Negative); Nitrate Urine Negative (Negative); Protein Urine Negative (Negative); Specific Gravity, Urine 1.005 (1.005-1.030); Urine Appearance Clear (CLEAR); Urine Color Yellow (Yellow); Urobilinogen Urine 0.2 mg/dL (Negative)
[2024-02-17 23:28] LABS: Bacteria Urine None Seen /hpf; Hyaline Casts Urine 0-4 /lpf; RBC Urine 0-2 /hpf (0-2); Squamous Epithelial Cell Urine 0-5 /hpf (0-5); WBC Urine 0-5 /hpf (0-5)
[2024-02-17 23:30] VITALS: BP 187/99; PULSE 58; O2SAT 100
[2024-02-17 23:52] LABS: Amphetamines Screen Urine Negative (Negative); Barbiturates Screen Urine Negative (Negative); Benzodiazepines Screen Urine Negative (Negative); Cocaine Screen Urine Negative (Negative); Opiate Screen Urine Negative (Negative); PCP Screen Urine Negative (Negative); THC Screen Urine Negative (Negative)
[2024-02-18] VITALS: BP 183/108
[2024-02-18] MEDS: hyDRALAzine 20 mg/mL INJ 1 mL 10 MG IVP (00:15)
[2024-02-18 00:35] VITALS: BP 183/108
[2024-02-18] MEDS: cloNIDine 0.1 mg Tablet PO (00:35)
[2024-02-18 00:51] VITALS: BP 148/74
[2024-02-18 01:00] VITALS: BP 159/85; PULSE 65; RESP 16; O2SAT 98
== END 2024-02-18 01:13 | disposition home or self-care (01) ==
PROVIDERS: Emergency Medicine; Emergency Provider Physician Assistant; PCP Family Medicine
DX: R41.0 Disorientation, unspecified (principal); I10 Essential (primary) hypertension; Z79.82 Long term (current) use of aspirin; Z87.891 Personal history of nicotine dependence; I25.2 Old myocardial infarction; I25.10 Atherosclerotic heart disease of native coronary artery without angina pectoris
CPT/HCPCS: 36415; 70450; 80053; 80306; 81003; 81015; 85025; 96374; 96375; 99285; J0360

== ENCOUNTER → 2024-05-30 09:00 | Outpatient (BNVA) | payer MEDICARE, OTHER, SELFPAY | PROVIDERS: PCP Family Medicine; Referring Provider Family Medicine; Visit Provider Specialist | DX: F03.90 Unspecified dementia, unspecified severity, without behavioral disturbance, psychotic disturbance, mood disturbance, and anxiety (principal) | CPT/HCPCS: 36415; 82607; 82746; 83520; 85651; 99204; 99205 ==

== ENCOUNTER 2024-06-01 13:41 | Outpatient (CLI) | payer MEDICARE, OTHER, SELFPAY ==
--- NOTE | 2024-06-01 13:45 | MR_ITS ---
WS: [id number] MRI BRAIN WITH AND WITHOUT CONTRAST HISTORY: DECLINE IN MENTAL FUNCTION W/HX OF TIA ATTACKS COMPARISON: 05/26/2022, CT head 02/17/2024 TECHNIQUE: Multiplanar imaging performed through the brain with MultiHance 16 ml's IV. Subacute diffusion abnormality in the anterior LEFT paramedian frontal lobe measures 9.5 mm. No addit ional acute infarcts are identified. There is extensive bilateral patchy and confluent T2 and FLAIR signal hyperintensities throughout the white matter which has progressed since 05/26/2022. Mild volume loss and atrophy in the cerebrum. In numerable tiny foci of low signal on the susceptibility imaging suggesting small diffuse petechial he morrhages. Innumerable hemosiderin depositions are identified as seen on the prior exam but these hav e progressed. There is hemosiderin associated with the acute LEFT frontal lobe lacunar infarct. Ventricles and extra-axial spaces are normal. Clivus and pituitary gland are normal. Mild cerebral atrophy. Additional hemosiderin deposits in the posterior fossa but not as many as in t he supratentorial brain. Blush like area of enhancement in the LEFT frontal lobe infarct additional areas of abnormal enhancem ent. Dural venous sinuses are normal. Paranasal sinuses: Well aerated with no significant disease. Mastoid air cells: Normal. Calvarium and scalp: Normal. MR/MR head wo/w con [id number] IMPRESSION: 1. Subacute lacunar infarct paramedian LEFT frontal lobe. 2. Significant progression of small vessel ischemic disease since 2021 MRI. Ex tensive confluent and patchy white matter disease is probably from small vessel disease. 3. Numerous foci of hemosiderin scattered throughout the brain as noted on the prior study. Notified Igor Sims MD at 06/01/2024 3:07 PM.
[2024-06-01] MEDS: gadobenate dimeglumine 20 mL vial 16 ML IV (14:41)
== END 2024-06-01 13:42 | disposition home or self-care (01) ==
LOC: RAD 13:43
PROVIDERS: PCP Family Medicine; Visit Provider Family Medicine
DX: I63.81 Other cerebral infarction due to occlusion or stenosis of small artery (principal); I67.82 Cerebral ischemia; G93.89 Other specified disorders of brain; F01.B4 Vascular dementia, moderate, with anxiety
CPT/HCPCS: 70553

== ENCOUNTER → 2024-06-27 15:42 | Outpatient (BNVA) | payer MEDICARE, OTHER, SELFPAY | PROVIDERS: PCP Family Medicine; Visit Provider Internal Medicine Cardiovascular Disease | DX: I25.10 Atherosclerotic heart disease of native coronary artery without angina pectoris (principal); I10 Essential (primary) hypertension; I35.0 Nonrheumatic aortic (valve) stenosis; J84.112 Idiopathic pulmonary fibrosis; E78.5 Hyperlipidemia, unspecified; R41.3 Other amnesia; Z87.891 Personal history of nicotine dependence | CPT/HCPCS: 99213 ==

== ENCOUNTER → 2024-09-12 10:46 | Outpatient (BNVA) | payer MEDICARE, OTHER, SELFPAY | PROVIDERS: PCP Family Medicine; Visit Provider Specialist | DX: F03.90 Unspecified dementia, unspecified severity, without behavioral disturbance, psychotic disturbance, mood disturbance, and anxiety (principal); E85.4 Organ-limited amyloidosis; I68.0 Cerebral amyloid angiopathy; I95.1 Orthostatic hypotension; I25.118 Atherosclerotic heart disease of native coronary artery with other forms of angina pectoris; I35.0 Nonrheumatic aortic (valve) stenosis | CPT/HCPCS: 99215 ==

== ENCOUNTER 2024-10-03 08:53 | Oncology outpatient (recurring) (ONCR) | payer MEDICARE, OTHER, SELFPAY ==
[2024-09-24 09:36] VITALS: BP 142/83; PULSE 86; RESP 16; TEMP 36.3; O2SAT 96
[2024-09-24] MEDS: methylPREDNISolone sod succ 1,000 MG in sodium chloride 0.9% 250 ML 258 MG IV (09:57)
[2024-09-24 11:11] VITALS: PULSE 70; RESP 17; TEMP 35.7; O2SAT 99
[2024-09-25 09:21] VITALS: BP 158/79; PULSE 76; RESP 18; TEMP 36.6; O2SAT 97
[2024-09-25] MEDS: methylPREDNISolone sod succ 1,000 MG in sodium chloride 0.9% 250 ML 258 MG IV (10:21)
[2024-09-25 11:34] VITALS: BP 180/96; PULSE 73; RESP 17; TEMP 36.9; O2SAT 97
[2024-09-26 09:22] VITALS: BP 154/80; PULSE 76; TEMP 36.6
[2024-09-26] MEDS: methylPREDNISolone sod succ 1,000 MG in sodium chloride 0.9% 250 ML 258 MG IV (09:32)
[2024-09-26 10:57] VITALS: BP 169/85; PULSE 67; RESP 17; TEMP 36.5; O2SAT 99
[2024-09-27] MEDS: methylPREDNISolone sod succ 1,000 MG in sodium chloride 0.9% 250 ML 258 MG IV (09:10)
[2024-09-27 10:20] VITALS: BP 162/79; PULSE 60; RESP 16; TEMP 36.9; O2SAT 99
[2024-09-28] MEDS: methylPREDNISolone sod succ 1,000 MG in sodium chloride 0.9% 250 ML 258 MG IV (09:21)
[2024-09-28 09:26] VITALS: BP 144/77; PULSE 56
[2024-09-28 10:41] VITALS: BP 184/91; PULSE 59; RESP 17; TEMP 36.2; O2SAT 97
[2024-10-03] MEDS: methylPREDNISolone sod succ 1,000 MG in sodium chloride 0.9% 250 ML 258 MG IV (09:35)
[2024-10-03 09:41] VITALS: BP 100/65; PULSE 84; RESP 16; TEMP 36.2; O2SAT 98
[2024-10-03 10:44] VITALS: BP 124/74; PULSE 71; RESP 18; TEMP 36.6; O2SAT 98
== END 2024-10-08 23:59 | disposition home or self-care (01) ==
PROVIDERS: PCP Family Medicine; Visit Provider Specialist
DX: E85.4 Organ-limited amyloidosis (principal); I68.0 Cerebral amyloid angiopathy; Z79.899 Other long term (current) drug therapy
CPT/HCPCS: 96365; 96366; 96413; 96415; J2919; J7050

== ENCOUNTER → 2024-11-06 10:42 | Outpatient (BNVA) | payer MEDICARE, OTHER, SELFPAY | PROVIDERS: PCP Family Medicine; Visit Provider Specialist | DX: F03.90 Unspecified dementia, unspecified severity, without behavioral disturbance, psychotic disturbance, mood disturbance, and anxiety (principal); E85.4 Organ-limited amyloidosis; I68.0 Cerebral amyloid angiopathy; I95.1 Orthostatic hypotension; I25.118 Atherosclerotic heart disease of native coronary artery with other forms of angina pectoris; I35.0 Nonrheumatic aortic (valve) stenosis | CPT/HCPCS: 99214 ==

== ENCOUNTER 2024-11-07 09:00 | Oncology outpatient (recurring) (ONCR) | payer MEDICARE, OTHER, SELFPAY ==
[2024-10-10 09:18] VITALS: BP 113/73; PULSE 86; RESP 16; TEMP 36.2; O2SAT 98
[2024-10-10] MEDS: methylPREDNISolone sod succ 1,000 MG in sodium chloride 0.9% 250 ML 258 MG IV (09:30)
[2024-10-10 10:33] VITALS: BP 108/63; PULSE 75; RESP 16; TEMP 36.5; O2SAT 97
[2024-10-17] MEDS: methylPREDNISolone sod succ 1,000 MG in sodium chloride 0.9% 250 ML 258 MG IV (10:17)
[2024-10-17 10:22] VITALS: BP 143/88; PULSE 73; RESP 18; TEMP 36.6; O2SAT 97
[2024-10-17 12:25] VITALS: BP 155/89; PULSE 67; RESP 17; TEMP 36.9; O2SAT 100
[2024-10-24 10:11] VITALS: BP 193/91; PULSE 72; RESP 16; TEMP 36.4; O2SAT 96
[2024-10-24] MEDS: methylPREDNISolone sod succ 1,000 MG in sodium chloride 0.9% 250 ML 275 MG IV (10:23)
[2024-10-31 09:34] VITALS: BP 100/63; PULSE 80; RESP 17; TEMP 36.7; O2SAT 99
[2024-10-31] MEDS: methylPREDNISolone sod succ 1,000 MG in sodium chloride 0.9% 250 ML 258 MG IV (09:34)
[2024-10-31 10:51] VITALS: BP 156/79; RESP 17; TEMP 36.8
[2024-11-07] MEDS: methylPREDNISolone sod succ 1,000 MG in sodium chloride 0.9% 250 ML 258 MG IV (10:01)
[2024-11-07 11:23] VITALS: BP 178/90; PULSE 75; RESP 16; TEMP 36.6; O2SAT 98
== END 2024-11-07 23:59 | disposition home or self-care (01) ==
PROVIDERS: PCP Family Medicine; Visit Provider Specialist
DX: Z53.9 Procedure and treatment not carried out, unspecified reason; E85.4 Organ-limited amyloidosis; I68.0 Cerebral amyloid angiopathy; Z79.899 Other long term (current) drug therapy
CPT/HCPCS: 96365; J2919; J7050

== ENCOUNTER 2024-11-13 14:58 | Outpatient (CLI) | payer MEDICARE, OTHER, SELFPAY ==
--- NOTE | 2024-11-13 15:15 | MR_ITS ---
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 COMPARISON: 06/01/2024, 05/26/2022 TECHNIQUE: Diffusion imaging, multiplanar T1, T2 and FLAIR imaging obtained. No acute diffusion abnormalities. Severe symmetric cerebral and cerebellar atrophy. Prominent extra-axial spaces. Ventricles are prominent also. Confluent increased T2 and FLAIR signal surrounding the ventricles and throughout the white matter. No large territory infarct. Numerous tiny foci of black dots scattered throughout the brain noted on the susceptibility sequences. These tiny hypodense foci on the susceptibility imaging are predominantly supratentorial with no obvious progression. No inferior displacement of cerebellar tonsils. The sella turcica and pituitary gland are unremarkable. Dural venous sinuses and [place] demonstrate no abnormality on this unenhanced studies. Paranasal sinuses: Clear. Mastoid air cells: Normal. Calvarium and scalp: Intact. MR/MR head wo con* [id number] IMPRESSION: 1. Normal diffusion imaging. No acute infarct. 2. Innumerable small black dot scattered throughout the brain. These were also seen on the prior study without obvious progression. Differential includes cer ebral amyloid angiopathy, microhemorrhages and small cavernous malformations. 3. Severe, symmetric cerebral volume loss and small vessel disease.
== END 2024-11-13 14:59 | disposition home or self-care (01) ==
PROVIDERS: PCP Family Medicine; Visit Provider Specialist
DX: E85.4 Organ-limited amyloidosis (principal); I68.0 Cerebral amyloid angiopathy; F03.90 Unspecified dementia, unspecified severity, without behavioral disturbance, psychotic disturbance, mood disturbance, and anxiety; R93.0 Abnormal findings on diagnostic imaging of skull and head, not elsewhere classified; G31.89 Other specified degenerative diseases of nervous system; I67.89 Other cerebrovascular disease
CPT/HCPCS: 70551

== ENCOUNTER → 2024-12-04 11:44 | Outpatient (BNVA) | payer MEDICARE, OTHER, SELFPAY | PROVIDERS: PCP Family Medicine; Visit Provider Specialist | DX: F03.90 Unspecified dementia, unspecified severity, without behavioral disturbance, psychotic disturbance, mood disturbance, and anxiety (principal); E85.4 Organ-limited amyloidosis; I68.0 Cerebral amyloid angiopathy; F02.B0 Dementia in other diseases classified elsewhere, moderate, without behavioral disturbance, psychotic disturbance, mood disturbance, and anxiety; I95.1 Orthostatic hypotension; I25.118 Atherosclerotic heart disease of native coronary artery with other forms of angina pectoris; I35.0 Nonrheumatic aortic (valve) stenosis | CPT/HCPCS: 99214 ==

== ENCOUNTER 2024-12-05 09:00 | Oncology outpatient (recurring) (ONCR) | payer MEDICARE, OTHER, SELFPAY ==
[2024-11-14 09:20] VITALS: BP 114/70; PULSE 87; RESP 16; TEMP 36.4; O2SAT 97
[2024-11-14] MEDS: methylPREDNISolone sod succ 1,000 MG in sodium chloride 0.9% 250 ML 258 MG IV (09:24)
[2024-11-14 10:35] VITALS: BP 148/86; PULSE 74; RESP 18; TEMP 36.4; O2SAT 98
[2024-11-21] MEDS: methylPREDNISolone sod succ 1,000 MG in sodium chloride 0.9% 250 ML 258 MG IV (09:16)
[2024-11-21 10:28] VITALS: BP 143/79; PULSE 73; RESP 17; TEMP 36.9; O2SAT 98
[2024-11-28] MEDS: methylPREDNISolone sod succ 1,000 MG in sodium chloride 0.9% 250 ML 258 MG IV (09:18)
[2024-11-28 10:32] VITALS: BP 138/75; PULSE 68; RESP 18; TEMP 36.8; O2SAT 96
== END 2024-12-08 23:59 | disposition home or self-care (01) ==
PROVIDERS: PCP Family Medicine; Visit Provider Specialist
DX: Z53.9 Procedure and treatment not carried out, unspecified reason (principal)
CPT/HCPCS: 96365; J2919; J7050

== ENCOUNTER 2024-12-26 09:00 | Oncology outpatient (recurring) (ONCR) | payer MEDICARE, OTHER, SELFPAY ==
[2024-12-12] MEDS: methylPREDNISolone sod succ 1,000 MG in sodium chloride 0.9% 250 ML 258 MG IV (09:50)
[2024-12-12 11:12] VITALS: BP 166/89; PULSE 73; RESP 17; TEMP 36.7; O2SAT 99
[2024-12-26 09:24] VITALS: BP 94/60; PULSE 94; RESP 16; TEMP 36; O2SAT 96
[2024-12-26] MEDS: methylPREDNISolone sod succ 1,000 MG in sodium chloride 0.9% 250 ML 258 MG IV (09:46)
[2024-12-26 10:52] VITALS: BP 165/93; PULSE 69
== END 2025-01-07 23:59 | disposition home or self-care (01) ==
PROVIDERS: PCP Family Medicine; Visit Provider Specialist
DX: I68.0 Cerebral amyloid angiopathy (principal); Z79.899 Other long term (current) drug therapy
CPT/HCPCS: 96365; J2919; J7050

== ENCOUNTER 2025-02-06 09:03 | Oncology outpatient (recurring) (ONCR) | payer MEDICARE, OTHER, SELFPAY ==
[2025-01-09 09:13] VITALS: BP 98/65; PULSE 89; RESP 16; TEMP 35.8
[2025-01-09 10:34] VITALS: BP 137/83; PULSE 71; RESP 18; TEMP 36.4
[2025-01-23 10:36] VITALS: BP 150/81; PULSE 83; RESP 16; TEMP 36.2; O2SAT 96
[2025-02-06 10:38] VITALS: BP 156/97; PULSE 75; RESP 17; TEMP 36.6; O2SAT 97
== END 2025-02-07 23:59 | disposition home or self-care (01) ==
PROVIDERS: PCP Family Medicine; Visit Provider Specialist
DX: I68.0 Cerebral amyloid angiopathy (principal); E85.4 Organ-limited amyloidosis; Z79.899 Other long term (current) drug therapy
CPT/HCPCS: 96365; J2919; J7050

== ENCOUNTER 2025-02-20 09:04 | Oncology outpatient (recurring) (ONCR) | payer MEDICARE, OTHER, SELFPAY ==
[2025-02-20 09:26] VITALS: BP 136/87; PULSE 89; RESP 16; TEMP 36.4; O2SAT 98
[2025-02-20 10:36] VITALS: BP 143/84; PULSE 70; TEMP 36.4; O2SAT 96
== END 2025-03-10 23:59 | disposition home or self-care (01) ==
LOC: ONCMED 09:05
PROVIDERS: PCP Family Medicine; Visit Provider Specialist
DX: I68.0 Cerebral amyloid angiopathy (principal); Z79.899 Other long term (current) drug therapy
CPT/HCPCS: 96365; J2919; J7050

== ENCOUNTER → 2025-03-04 13:28 | Outpatient (BNVA) | payer MEDICARE, OTHER, SELFPAY | PROVIDERS: PCP Family Medicine; Visit Provider Specialist | DX: G30.1 Alzheimer's disease with late onset (principal); E85.4 Organ-limited amyloidosis; I68.0 Cerebral amyloid angiopathy; I95.1 Orthostatic hypotension; F02.B0 Dementia in other diseases classified elsewhere, moderate, without behavioral disturbance, psychotic disturbance, mood disturbance, and anxiety; I25.118 Atherosclerotic heart disease of native coronary artery with other forms of angina pectoris; I35.0 Nonrheumatic aortic (valve) stenosis | CPT/HCPCS: 99214 ==

== ENCOUNTER → 2025-06-20 13:59 | Outpatient (BNVA) | payer MEDICARE, OTHER, SELFPAY | PROVIDERS: PCP Family Medicine; Visit Provider Internal Medicine Cardiovascular Disease | DX: I35.0 Nonrheumatic aortic (valve) stenosis (principal); I25.10 Atherosclerotic heart disease of native coronary artery without angina pectoris; I10 Essential (primary) hypertension; Z00.00 Encounter for general adult medical examination without abnormal findings; Z87.891 Personal history of nicotine dependence; I25.2 Old myocardial infarction | CPT/HCPCS: 99204; 99214 ==

== ENCOUNTER 2025-06-24 12:00 | Oncology outpatient (recurring) (ONCR) | payer MEDICARE, OTHER, SELFPAY ==
--- NOTE | 2025-06-24 12:00 | USCV_ITS ---
Yandel Hernandez Age: 84 Gender: M : 1940 Exam Date: 06/24/2025 12:24 Ordering Phys: Colt Fung MD ([email or web address]) Technologist: [place] [facility] [place]: cp sob BP: 124 / 72 HR: 73 Rhythm: Sinus Technical Quality: Adequate MEASUREMENTS (Male / Female) Normal Values 2D ECHO LVOT Diameter 2.1 cm LV Ejection Fraction MOD 4C 62.2 % LV Ejection Fraction MOD 2C 58.7 % LV Ejection Fraction 2C AL 61.0 % LA Diameter 4.2 cm RA Systolic Volume 4C AL 49.0 ml RA Systolic Volume 4C MOD 47.0 ml Aorta at Sinotubular Diameter 2.8 cm M-MODE LV Ejection Fraction MM Teich 62.0 % IVS Diastolic Thickness MM 1.3 cm 0.6 - 1.0 / 0.6 - 0.9 cm IVS Systolic Thickness MM 1.8 cm LVPW Diastolic Thickness MM 1.9 cm 0.6 - 1.0 / 0.6 - 0.9 cm LVPW Systolic Thickness MM 2.4 cm LA Ao Ratio MM 1.1 AV Cusp Separation MM 1.5 cm DOPPLER AV Peak Velocity 134.0 cm/s MV Peak Velocity 116.0 cm/s MV Area PHT 4.0 cm squared Mitral E to A Ratio 0.5 TV Peak Velocity 211.0 cm/s TR Peak Velocity 240.0 cm/s TR Peak Gradient 23.0 mmHg PV Peak Velocity 133.0 cm/s FINDINGS Left Ventricle Normal left ventricular size, systolic function and wall thickness, with no regional wall motion abnormalities. Left ventricular ejection fraction is estimated at 60 %. Grade I/IV diastolic dysfunction (abnormal relaxation filling pattern), normal to mildly elevated filling pressures. Right Ventricle Normal right ventricular size and systolic function. Right Atrium Normal right atrial size. Left Atrium Normal left atrial size. IA Septum Normal appearance of the interatrial septum. Mitral Valve Mildly thickened mitral valve. No mitral valve stenosis. Mild mitral valve regurgitation. Aortic Valve Severe aortic valve calcification. Aortic valve sclerosis without stenosis. Trace aortic valve regurgitation. Tricuspid Valve Normal tricuspid valve structure. No tricuspid valve stenosis or regurgitation. Normal pulmonary pressure. Pulmonic Valve Normal pulmonic valve structure. No pulmonic valve stenosis or regurgitation. Pericardium No pericardial effusion. Aorta Normal diameter of the aortic root and ascending thoracic aorta. IVC Normal IVC diameter. CONCLUSIONS Normal left ventricular size, systolic function and wall thickness, with no regional wall motion abnormalities. Left ventricular ejection fraction is estimated at 60 %. Grade I/IV diastolic dysfunction (abnormal relaxation filling pattern), normal to mildly elevated filling pressures. Severe aortic valve calcification. Aortic valve sclerosis without stenosis. Trace aortic valve regurgitation. Mildly thickened mitral valve. No mitral valve stenosis. Mild mitral valve regurgitation. There is no pericardial effusion. Right atrial pressure is around 5 mm of mercury. Colt Fung MD (Electronically Signed) Final Date: 26 June 2025 16:14 S
== END 2025-07-10 23:59 | disposition home or self-care (01) ==
LOC: RAD 12:11 → ONCMED 06-25 09:15
PROVIDERS: PCP Family Medicine; Visit Provider Specialist
DX: I35.0 Nonrheumatic aortic (valve) stenosis (principal); R01.1 Cardiac murmur, unspecified; R93.1 Abnormal findings on diagnostic imaging of heart and coronary circulation; I34.0 Nonrheumatic mitral (valve) insufficiency; I35.8 Other nonrheumatic aortic valve disorders
CPT/HCPCS: 93306